=== PATIENT | female | born 1950 | race African-American/Black ===

== ENCOUNTER 2020-09-03 13:30 | Outpatient (RCR) | payer OTHER, SELFPAY ==
--- NOTE | 2020-07-30 15:07 | PTOPEVAL ---
PHYSICAL THERAPY EVALUATION AND PLAN OF CARE 07-30-2020 Thank you for referring Mely Rehman to [facility], for the diagnosis of B LE lymphedema.? She is scheduled to be seen for therapy? 3x/week for 6 weeks. Please review, sign, date and return this plan of care YISEL. I agree with and certify that the following plan of care is medically necessary. Referring Physician Date Attending Provider: Dr. Gray Sosa *PT Outpatient Evaluation Start: 07/30/20 13:50 Document 07/30/20 13:50 DARIA (Rec: 07/30/20 15:07 DARIA [id number]) Outpatient Past Medical History Past Medical History Source of Past Medical History Patient Neurological History Hx Neurological Disorders No Significant History Cardiovascular History Hx Hypertension Yes: meds Respiratory History Hx Other Respiratory Disorders Yes: SOB with exertion Gastrointestinal History Hx Cholecystectomy Yes Hx Gastroesophageal Reflux Disease Yes Musculoskeletal History Hx Other Musculoskeletal Disorders Yes: leg pain from LE lymphedema Endocrine History Hx Endocrine Disorders No Significant History Reproductive History Hx Hysterectomy Yes Other History Hx Cancer Yes: R breast mastectomy, chemo 6 wk Evaluation Information Problem Diagnosis B LE lymphedema Onset May 2020 Prior Level of Function Activity Level (Last 3 Months) Occupation not working Activity of Daily Living Ability Needs Some Help Indoor/Home Mobility Independent Community Mobility Needs Some Help Functional Cognition (Planning, Shopping Needs Some Help , Taking Medications) Cooking No Cleaning No Laundry No Shopping No Driving No Home Setting Home Type House Environmental Barriers Railing, Bilateral,Stairs, 2-4 Living Situation Alone Mobility Assistive Devices (Used Last 3 None,Cane,Walker, Wheeled Months) Comments Additional Prior Level of Function have helper 4 days/wk for 3 & Comments 1/2 hours, Tiny- does all home tasks; bathing, dressing; use wheeled walker or cane in home only; not able to walk in community; 2 entry steps into home with B hand rails; not able to sleep in her bed due to leg pain for past 2 months;
--- NOTE | 2020-09-06 07:35 | PCPTNOTE ---
Patient called & cancelled scheduled appointment this date due to back pain .
--- NOTE | 2020-09-07 14:09 | PCPTNOTE ---
pt called and canceled tomorrow's appointment due to increased in back pain. She reports a history of back pain, sometimes better in few days, other times takes weeks to get better. Discussed with her to remove wraps. She is to call to reschedule reevaluation as soon as her back is better. If it is over 3 weeks, she will need a new dr script to return to therapy. She voiced understanding of above.
--- NOTE | 2020-09-29 08:51 | PCPTNOTE ---
pt called and left message, her son has COVID, so she is on quarantine. And she will return for PT when she is able;
--- NOTE | 2020-10-13 11:58 | PCPTNOTE ---
PHYSICAL THERAPY DISCHARGE 10-13-20 Attending Provider: Dr. Gray Sosa Patient:Mely Rehman Date of :1950 Mrs. Rehman has received 6 PT sessions, from July 30 to September 03, 2020 for the diagnosis of LE lymphedema. She called and canceled appointments due to being ill. She will be discharged from PT at this time. The goals were not assessed. Thank you for referring Mely to [facility]. Please review, sign, date and return this discharge summary YISEL. I have been updated about the patient's current status and I agree with discharge from the above service at this time. Referring Physician Date
== END 2020-10-14 10:07 | disposition home or self-care (01) ==
LOC: ANHPT 13:30
PROVIDERS: PCP Internal Medicine
DX: I89.0 Lymphedema, not elsewhere classified (principal)
CPT/HCPCS: 29581; 97140; 97162

== ENCOUNTER 2021-09-27 18:16 | Emergency (ER) | payer OTHER, SELFPAY ==
--- NOTE | ~2021-09-27 | XR_ITS ---
EXAMINATION: XR chest 1V portable INDICATION: Shortness of breath TECHNIQUE: Portable AP chest at 2157 hours COMPARISON: None available FINDINGS: There are diffuse opacities throughout all lung zones. There is no pleural effusion or pneu mothorax. The cardiomediastinal silhouette is normal. IMPRESSION: 1. Diffuse lung disease in a pattern suggestive of COVID 19 pneumonia. Reviewed, dictated and finalized at location F. LINING BANDER
--- NOTE | ~2021-09-27 | CT_ITS ---
EXAMINATION: CT abdomen pelvis wo con DATE: 09/28/2021 01:41 INDICATION: Nausea. Lower abdominal pain. TECHNIQUE: Computed tomography (CT) of the abdomen and pelvis was performed without intravenous contr ast. Automated exposure control and iterative reconstruction technique were employed. The dose-length product was 1286.63 mGy-cm. COMPARISON: None FINDINGS: Extensive patchy airspace opacities throughout the visualized bilateral mid and lower lung zones with appearance most suspicious for COVID pneumonia. No pleural effusion. Heart size is normal. No perica rdial effusion. Diffuse hepatic steatosis. Cholecystectomy clips at the gallbladder fossa. Spleen, pa ncreas, bilateral adrenal glands and kidneys are normal. Bladder is normal. The uterus is not identif ied and has likely been surgically resected. Bowels including the appendix are normal. No free intr aperitoneal gas or fluid. No pathologically enlarged abdominal or pelvic lymphadenopathy. Moderate th oracic and severe lumbar spondylosis. There are bridging osteophytes at multiple levels in the spine, consistent with diffuse idiopathic skeletal hyperostosis (DISH). IMPRESSION: 1. Diffuse patchy bilateral lung disease most consistent with COVID pneumonia. 2. No acute intra-abdominal/pelvic process. Reviewed, dictated and finalized at location A. T SORTER
[2021-09-27 18:37] VITALS: BP 173/67; PULSE 80; RESP 17; TEMP 36.7; O2SAT 97
[2021-09-27 18:58] LABS: Basophils Percent Auto 0.3 % (0.2-1.2); Eosinophils Percent Auto 1.1 % (0-4.4); Hemoglobin 13.9 g/dL (12.0-15.0); Immature Granulocyte Absolute 0.03 K/mm3 (0.00-0.031); Immature Granulocyte Percent A 0.8 % (0-0.5); Lymphocytes Absolute Auto 1.66 K/mm3 (0.9-3.2); Lymphocytes Percent Auto 46.5 % (18.3-44.2); Mean Corpuscular HGB Conc 33.9 g/dl (32-36); Mean Corpuscular Volume 85.4 fl (80-100); Mean Platelet Volume 10.1 fl (7.4-10.4); Monocytes Absolute Auto 0.5 K/mm3 (0.1-0.6); Monocytes Percent Auto 13.7 % (2.6-8.5); Neutrophils Absolute Auto 1.3 K/mm3 (1.3-6.7); Neutrophils Percent Auto 37.6 % (45.5-73.1); Platelet Count Result 185 k/mm3 (150-375); Red Cell Distribution Width 14.3 % (11.5-14.5); White Blood Count 3.6 K/mm3 (4.5-10.0)
[2021-09-27 19:09] LABS: Alanine Aminotransferase 49 U/L (4-35); Albumin Level 3.3 g/dL (3.5-5.1); Alkaline Phosphatase 79 U/L (38-126); Anion Gap 7 mmol/L (8-16); Aspartate Amino Transferase 64 U/L (14-36); Bilirubin,Total 0.6 mg/dL (0.2-1.3); Blood Urea Nitrogen 17 mg/dL (7-17); Calcium 8.8 mg/dL (8.4-10.2); Carbon Dioxide 28 mmol/L (22-30); Chloride 100 mmol/L (98-107); Estimated CRCL calculation 39 ml/min; Estimated Glomerular Filt Rate 38; Glucose 122 mg/dL (65-110); Lipase 317 U/L (23-300); Potassium 4.7 mmol/L (3.4-5.0); Sodium 135 mmol/L (137-145)
--- NOTE | 2021-09-27 19:28 | PC.NURSE ---
Pt assisted to the bathroom in waiting room for CCUS. Able to stand and ambulate to the bathroom on her own. UA collected and speciman sent. Pt made aware of pending wait and busy department.
[2021-09-27 19:54] LABS: Add Urine Microscopic? YES; Appearance Urine Clear (Clear); Bacteria Urine Trace /hpf; Bilirubin Urine Negative (Negative); Blood Urine Negative (Negative); Color Urine Yellow (Yellow); Glucose Urine UA Negative (Negative); Ketones Urine Negative (Negative); Leukocyte Esterase Ur Negative LEU/UL (Negative); Mucus Urine Rare /lpf; Nitrate Urine Negative (Negative); Protein Urine 2+ mg/dL (Negative); RBC Urine 0-2 /hpf (0-2); Specific Grav Ur 1.006 (1.001-1.035); Squamous Epithelial Cell Urine Moderate /hpf (Few); Urobilinogen Urine Negative mg/dL (<2.0); WBC Urine 0-3 /hpf
[2021-09-27 21:48] VITALS: BP 163/58; PULSE 97; RESP 18; O2SAT 99
--- NOTE | 2021-09-27 22:19 | ECG_ITS ---
Measurements Intervals [place] Rate: 80 P: 53 MA: 170 QRS: -27 QRSD: 88 T: 68 QT: 320 QTc: 370 Interpretive Statements SINUS RHYTHM LEFT AXIS DEVIATION POSSIBLE LEFT ATRIAL ENLARGEMENT EARLY PRECORDIAL R/S TRANSITION LOW QRS VOLTAGE IN PRECORDIAL LEADS POSSIBLE LEFT VENTRICULAR HYPERTROPHY BASELINE ARTIFACT- I, II, III, AVR, AVL, AVF BORDERLINE ECG Electronically Signed On 09-28-2021 6:34:09 CHEF KITCHEN MANAGER by Jefry Roth D.O.
[2021-09-27] MEDS: ONDANSETRON INJ 4 MG/2 ML VIAL 8 MG IV PUSH (22:50)
[2021-09-27 23:33] LABS: Alveolar/Arterial O2 Gradient 50.8 mmHg; Base Excess ABG 0.7 mEq/l (+/-2.0); Carboxyhemoglobin 0.4 % THb (0-2.0); Device ROOM AIR; Fractional Inspired Oxygen 21 %; HCO3 ABG 23.7 mEq/l (22.0-26.0); Methemoglobin ABG 0.2 %THb (0-1.5); Modified Allen's Test Pass; Oxygen Content ABG 18.1 %vol (16.0-22.0); Oxygen Saturation ABG 92.2 % (95.0-100.0); Oxyhemoglobin 90.3 % THb (90.0-100.0); PCO2 ABG 33.6 mmHg (35.0-45.0); PO2 ABG 58.7 mmHg (80.0-100.0); Reduced Hemoglobin 9.1 %THb (0-5.0); Site Drawn LEFT RADIAL; Total Hemoglobin 14.3 g/dL (12.0-18.0); pH ABG 7.467 (7.350-7.450)
[2021-09-27 23:44] VITALS: BP 162/72; PULSE 88; RESP 24; O2SAT 96
--- NOTE | 2021-09-28 00:07 | ED.GENADULT ---
HPI - General Adult General Chief complaint: Nausea/Vomiting/Diarrhea Stated complaint: COVID 09/11 STILL SOB AND ?UTI Time Seen by Provider: 09/27/21 21:34 Source: patient Mode of arrival: ambulatory Limitations: no limitations History of Present Illness HPI narrative: This is a 70 year old female who presents for evaluation of nausea , cough and shortness of breath. Patient was diagnosed with COVID 09/11.. She states she has completed quarantine but she is still feeling short of breath. She reports last night her sob worsened and she had to sit up in bed. She also states she was diagnosed with a UTI last week. She was started on macrobid but she has been having nausea due to macrobid. She denies any vomiting or diarrhea. She reports lower abdominal pressure. She also states she had fever last night. Related Data Allergies Allergy/AdvReac Type Severity Reaction Status Date / Time acetaminophen [From Vicodin] Allergy Unknown Verified 09/27/21 22:10 citalopram [From Celexa] Allergy Unknown Verified 09/27/21 22:10 hydrocodone [From Vicodin] Allergy Unknown Verified 09/27/21 22:10 iohexol Allergy Unknown Verified 09/27/21 22:11 [From contrast - CT, X-RAY] nitrofurantoin Allergy Unknown Verified 09/27/21 22:12 [From Macrobid] pantoprazole [From Protonix] Allergy Unknown Verified 09/27/21 22:12 Review of Systems Review of Systems: All systems reviewed & are unremarkable except as noted in HPI and below PMFSH Past Medical History Medical History (Updated 09/28/21 @ 02:13 by Madonna Segal MD) Hypertension Lymphedema Morbid obesity Surgical History Surgical History (Updated 09/28/21 @ 00:09 by Madonna Segal MD) H/O mastectomy History of cholecystectomy Social History Social History (Updated 09/28/21 @ 00:09 by Madonna Segal MD) Smoking status: Never smoker Exam Const: General: no acute distress and alert Nutritional Appearance: obese morbidly obese Orientation/consciousness: patient oriented x3 HENMT: Head: normocephalic and atraumatic Ears: TM's normal bilaterally Face and sinus: normal facial exam, sinuses nontender and face symmetric Mouth: Yes Normal oral and palatal mucosa present, Yes lip normal, Yes tongue normal, Yes oropharynx normal and Yes moist mucous membranes Eyes: EOM: EOMs intact bilaterally Chest: Chest palpation & inspection: normal inspection of the chest Resp: Effort & Inspection: normal respiratory effort and no retractions Auscultation: clear to auscultation bilaterally Cardio: Rate: regular rate Rhythm: regular rhythm Heart sounds: no murmurs GI: GI Palp: Yes Soft to palpation, No Tenderness to palpation present (GI) and No Guarding due to palpation present (GI) Auscultation: normal bowel sounds : General: Yes no CVA tenderness Back/Spine/Pelvis: Back: no CVA tenderness Neuro: General: patient oriented x3 and moves all extremities Extrem: General: edema Psych: Mental Status: mental status grossly normal Affect: normal affect Course Reevaluation(s) Reevaluation #1: PAtient has covid pneumonia. She refuses to get CTA as she does not want IV contrast. She reports IV contrast causes nausea and vomiting . She denies hives, swelling or shortness of breath during IV contrast use. I recommended to patient that she get CT scan but she refuses and she signed refusal saying she understood risk of refusal. Nurse was at bedside. It appears patient is anticoagulated. Nurse reports patient was seen at [facility] yesterday for same complaint and discharged. Date: 09/28/21 Time: 02:10 Reevaluation #2: I discussed with patient that she has covid pneumonia. She states last week she was placed on prednisone and z pack so I suspect she already had pneumonia. She was able to ambulate and her oxygenation due to go below 92 % on room air. Date: 09/28/21 Time: 02:39 Vital Signs Vital signs: Vital Signs Temperature 98.0 F 09/27/21 18:37
[2021-09-28 00:08] LABS: Troponin I < 0.012 ng/mL (0.000-0.034)
[2021-09-28] MEDS: METOCLOPRAMIDE HCL INJ 10 MG/2 ML VIAL IV PUSH (00:28)
[2021-09-28 00:30] LABS: INR 4.1; Prothrombin Time 38.3 Seconds (11.1-14.7)
[2021-09-28 00:31] LABS: Partial Thromboplastin Time 87.1 SECONDS (22.3-36.8)
[2021-09-28] MEDS: HYOSCYAMINE SULFATE 0.125 MG TABLET PO (00:32)
[2021-09-28 00:33] LABS: D Dimer 0.53 ug/mL (<0.48)
[2021-09-28 00:34] VITALS: BP 162/86; PULSE 80; RESP 24; O2SAT 95
--- NOTE | 2021-09-28 01:08 | PC.NURSE ---
Pt signs refusal form for CTA with Dr. Segal and this RN witnessing at this time.
[2021-09-28 01:50] VITALS: BP 135/86; PULSE 78; RESP 26; O2SAT 96
[2021-09-28 03:04] VITALS: BP 153/73; PULSE 81; RESP 24; O2SAT 94
== END 2021-09-28 03:05 | disposition home or self-care (01) ==
PROVIDERS: Emergency Medicine; Emergency Provider General Practice; PCP Internal Medicine
DX: U07.1 COVID-19 (principal); J12.82 Pneumonia due to coronavirus disease 2019; R11.0 Nausea; I10 Essential (primary) hypertension; I89.0 Lymphedema, not elsewhere classified; E66.01 Morbid (severe) obesity due to excess calories; Z68.43 Body mass index [BMI] 50.0-59.9, adult; Z90.10 Acquired absence of unspecified breast and nipple; R94.31 Abnormal electrocardiogram [ECG] [EKG]
CPT/HCPCS: 36415; 36600; 71045; 74176; 80053; 81001; 82375; 82805; 83050; 83690; 84484; 85025; 85380; 85610; 85730; 93005; 96365; 96375; 99284; A9270; J0131; J2405; J2765

== ENCOUNTER 2022-08-25 12:44 | Outpatient (CLI) | payer OTHER, SELFPAY | END 2022-08-25 12:45 | disposition home or self-care (01) | LOC: ANHAUDIO 12:46 | PROVIDERS: PCP Internal Medicine; Visit Provider Otolaryngology | DX: H93.11 Tinnitus, right ear (principal); H90.3 Sensorineural hearing loss, bilateral | CPT/HCPCS: 92557; 92567 ==

== ENCOUNTER 2022-09-03 11:48 | Emergency (ER) | payer OTHER, SELFPAY ==
--- NOTE | ~2022-09-03 | XR_ITS ---
EXAMINATION: XR chest 1V portable INDICATION: Bilateral lower limb swelling TECHNIQUE: Portable AP chest at 1242 hours COMPARISON: 09/27/2021 FINDINGS: There are mild diffuse interstitial and airspace opacities throughout all lung zones with a mid and lower lung zone predominance. No pleural effusion or pneumothorax. The cardiomediastinal vanessa houette is normal. IMPRESSION: 1. Mild diffuse lung disease, consistent with pneumonia and/or atelectasis Lily/or pulmonary edema. Reviewed, dictated and finalized at location A. F ENGINEER DRILLING AND RECOVERY IMPRESSION: 1. Mild diffuse lung disease, consistent with pneumonia and/or atelectasis Lily/ or pulmonary edema.
[2022-09-03 11:52] VITALS: BP 162/72; PULSE 88; RESP 18; TEMP 36.9; O2SAT 99
--- NOTE | 2022-09-03 12:25 | ED.EXTPRO ---
HPI - Extremity Problem General Chief complaint: Extremity Problem,Nontraumatic Stated complaint: legs are swollen Time Seen by Provider: 09/03/22 12:25 Source: patient and family History of Present Illness HPI Narrative: 71 years old -Sammarinese female presents with Hall of the lower legs started 1 week ago after her multiple chair got broken. History of lymphedema for over 3 years, patient currently on Lasix 40 mg once a day for lymphedema, also on Coumadin for pulmonary embolism and prophylaxis for years. Patient denies any chest pain, shortness of breath, back pain, palpitation or other symptoms. Patient reports having a motor chair which she cannot lift her leg up to the level of her heart or above it. That she had got broken 1 week ago, patient legs that been hanging down since while sitting on a chair. The edema got worse. She denies any fever, chills, nausea, vomiting. Related Data Home Medications Medication Instructions Recorded Confirmed betamethasone dipropionate 0.05 % 1 applic topical DAILY PRN 08/17/22 08/17/22 topical cream chlorhexidine gluconate 0.12 % 15 ml buccal DAILY 08/17/22 08/17/22 mouthwash cholecalciferol (vitamin D3) 1,250 1,250 mcg PO WEEKLY 08/17/22 08/17/22 mcg (50,000 unit) capsule clotrimazole 1 % topical cream 1 applic topical Q12H 08/17/22 08/17/22 furosemide 40 mg tablet 40 mg PO QAM 08/17/22 08/17/22 lorazepam 1 mg tablet 1 mg PO DAILY PRN 08/17/22 08/17/22 losartan 25 mg tablet 25 mg PO DAILY 08/17/22 08/17/22 meclizine 25 mg tablet 25 mg PO BID PRN 08/17/22 08/17/22 pantoprazole 40 mg tablet,delayed 40 mg PO QAM 08/17/22 08/17/22 release (Protonix) potassium chloride 20 mEq 20 meq PO DAILY 08/17/22 08/17/22 tablet,extended release tramadol 50 mg tablet 50 mg PO Q6H PRN 08/17/22 08/17/22 urea 40 % lotion 1 applic topical BID 08/17/22 08/17/22 Allergies Allergy/AdvReac Type Severity Reaction Status Date / Time acetaminophen [From Vicodin] Allergy Unknown Verified 08/17/22 13:27 citalopram [From Celexa] Allergy Unknown Verified 08/17/22 13:27 erythromycin base Allergy Palpitation Verified 09/03/22 12:27 s hydrocodone [From Vicodin] Allergy Unknown Verified 08/17/22 13:27 hydroxyzine [From Vistaril] Allergy Palpitation Verified 09/03/22 12:27 s iohexol Allergy Unknown Verified 08/17/22 13:27 [From contrast - CT, X-RAY] meperidine [From Demerol] Allergy Palpitation Verified 09/03/22 12:27 s nitrofurantoin Allergy Unknown Verified 08/17/22 13:27 [From Macrobid] pantoprazole [From Protonix] Allergy Unknown Verified 08/17/22 13:27 tetracycline Allergy Nausea Verified 09/03/22 12:27 Review of Systems Review of Systems: All systems reviewed & are unremarkable except as noted in HPI and below PMFSH Past Medical History Medical History Hypertension Lymphedema Morbid obesity Surgical History Surgical History H/O mastectomy History of cholecystectomy Family History Family History Father Lung cancer Sibling Lung cancer Hypertension Heart disease Grandparent Hypertension Heart disease Social History Social History Smoking status: Never smoker Alcohol intake: never Substance use: never Lack of Transportation: No Lack of Food: Never True Current Housing: I Have Housing Concerned About Future Housing: No Difficulty Paying Gas/Electric Bills: No Difficulty Paying for Meds: No Currently Unemployed: No Education: High School Diploma/GED Difficulty w/ Childcare or Family Care: No Exam Narrative: General appearance: Well-developed, well-nourished Skin: Normal color, bilateral lower legs edema up to the knees bilaterally, chronic stasis dermatitis with thick rough skin anteriorly, no discharge,
--- NOTE | 2022-09-03 12:27 | ECG_ITS ---
Measurements Intervals [place] Rate: 73 P: 48 WA: 232 QRS: -28 QRSD: 89 T: 40 QT: 343 QTc: 379 Interpretive Statements SINUS RHYTHM WITH FIRST DEGREE AV BLOCK LOW QRS VOLTAGE IN PRECORDIAL LEADS [QRS DEFLECTION < 1.0 mV IN CHEST LEADS] MODERATE VOLTAGE CRITERIA FOR LVH, CONSIDER NORMAL VARIANT [MEETS CRITERIA IN ONE OF: R(aVL), S(V1), R(V5), R(V5/V6)+S(V1)] COMPARED TO ECG 09/27/2021 23:13:01 FIRST DEGREE AV BLOCK NOW PRESENT Electronically Signed On 09-03-2022 14:52:25 BINDER SELECTOR by Eleonora Chopra M.D.
[2022-09-03 13:06] LABS: Basophils Percent Auto 0.6 % (0.2-1.2); Eosinophils Absolute Auto 0.5 K/mm3 (0-0.3); Eosinophils Percent Auto 7.7 % (0-4.4); Hematocrit 41.9 % (37.0-47.0); Hemoglobin 13.6 g/dL (12.0-15.0); Immature Granulocyte Absolute 0.03 K/mm3 (0.00-0.031); Immature Granulocyte Percent A 0.5 % (0-0.5); Lymphocytes Absolute Auto 1.82 K/mm3 (0.9-3.2); Lymphocytes Percent Auto 28.7 % (18.3-44.2); Mean Corpuscular HGB Conc 32.5 g/dl (32-36); Mean Corpuscular Hemoglobin 28.2 pg (26-34); Mean Corpuscular Volume 86.7 fl (80-100); Monocytes Absolute Auto 0.7 K/mm3 (0.1-0.6); Neutrophils Absolute Auto 3.3 K/mm3 (1.3-6.7); Neutrophils Percent Auto 51.5 % (45.5-73.1); Platelet Count Result 186 k/mm3 (150-375); Red Blood Count 4.83 M/mm3 (4.2-5.4); Red Cell Distribution Width 16.1 % (11.5-14.5); White Blood Count 6.4 K/mm3 (4.5-10.0)
[2022-09-03 13:16] LABS: Alanine Aminotransferase 23 U/L (6-35); Albumin Level 4.2 g/dL (3.5-5.1); Alkaline Phosphatase 91 U/L (38-126); Anion Gap 5 mmol/L (8-16); Aspartate Amino Transferase 28 U/L (14-36); Bilirubin,Total 0.6 mg/dL (0.2-1.3); Blood Urea Nitrogen 18 mg/dL (7-17); Calcium 9.6 mg/dL (8.4-10.2); Carbon Dioxide 27 mmol/L (22-30); Chloride 109 mmol/L (98-107); Estimated CRCL calculation 40 ml/min; Estimated Glomerular Filt Rate 41; Glucose 107 mg/dL (65-110); INR 1.9; Prothrombin Time 21.3 Seconds (11.1-14.7); Sodium 141 mmol/L (137-145)
[2022-09-03 13:17] LABS: Partial Thromboplastin Time 39.3 SECONDS (22.3-36.8)
[2022-09-03 13:24] LABS: NT Pro B Type Natriuretic Pept 21 pg/mL (5-100)
[2022-09-03 13:57] LABS: Add Urine Microscopic? NO; Appearance Urine Clear (Clear); Bilirubin Urine Negative (Negative); Blood Urine Negative (Negative); Color Urine Light Yellow (Yellow); Glucose Urine UA Negative (Negative); Ketones Urine Negative (Negative); Leukocyte Esterase Ur Negative LEU/UL (Negative); Nitrate Urine Negative (Negative); Protein Urine Negative (Negative); Specific Grav Ur 1.015 (1.001-1.035); Urobilinogen Urine 0.2 mg/dL (<2.0)
[2022-09-03 14:25] VITALS: BP 138/72; PULSE 76; RESP 18; O2SAT 99
== END 2022-09-03 14:25 | disposition home or self-care (01) ==
PROVIDERS: Emergency Provider Emergency Medicine; PCP Internal Medicine
DX: R60.0 Localized edema (principal); I89.0 Lymphedema, not elsewhere classified; I10 Essential (primary) hypertension; Z79.01 Long term (current) use of anticoagulants; Z86.711 Personal history of pulmonary embolism
CPT/HCPCS: 36415; 71045; 80053; 81003; 83880; 85025; 85610; 85730; 93005; 99283

== ENCOUNTER 2024-03-03 13:35 | Emergency (ER) | payer OTHER, SELFPAY ==
--- NOTE | ~2024-03-03 | CT_ITS ---
CT abdomen pelvis wo con Ordering provider: Nino Mccann MD History: 73 years Female with . left flank pain . Comparison: September 28, 2021 Technique: CT abdomen and pelvis without IV and without oral contrast. Radiation reduction technique utilized. DLP L is 1834.77 mGy. Findings: VISUALIZED LOWER CHEST: Dependent atelectatic changes. UPPER ABDOMINAL ORGANS: Liver: Normal. Gallbladder: Status post cholecystectomy. Spleen: Normal. Stomach/duodenum: Sliding hiatus hernia. Pancreas: Normal. Adrenals: Normal. Kidneys: Minimal fullness of the right renal pelvis. No stones or dilated ureters seen. PELVIC ORGANS: The bladder is normal. BOWEL AND MESENTERY: Colon: No evidence of diverticulitis. Normal appendix. Small Bowel: Normal. No obstruction. Peritoneum/mesentery: No free air or free fluid. No mesenteric lymphadenopathy. RETROPERITONEUM: Mild atheromatous disease of the abdominal aorta. No retroperitoneal lymphadenopat hy. MUSCULOSKELETAL: Superficial soft tissues: The superficial soft tissues are normal. Bones: Age appropriate degenerative changes of the spine. IMPRESSION: 1. No evidence of obstruction, diverticulitis or appendicitis. 2. Slightly dilated right renal pelvis with no definite stones. 3. Sliding hiatus hernia. Reviewed, dictated and finalized at location A.
[2024-03-03 13:37] VITALS: BP 174/81; PULSE 79; RESP 20; TEMP 36.7; O2SAT 99
[2024-03-03 14:21] VITALS: BP 178/89; PULSE 69; RESP 20; O2SAT 99
[2024-03-03 14:23] LABS: Appearance Urine Clear (Clear); Bilirubin Urine Negative (Negative); Blood Urine Negative (Negative); Color Urine Yellow (Yellow); Glucose Urine UA Negative (Negative); Ketones Urine Negative (Negative); Leukocyte Esterase Ur Negative LEU/UL (Negative); Nitrate Urine Negative (Negative); Protein Urine Negative (Negative); Specific Grav Ur 1.012 (1.001-1.035); Urobilinogen Urine 0.2 mg/dL (<2.0); pH Urine 5.5 (5.0-9.0)
[2024-03-03 14:37] LABS: Add Urine Microscopic? NO
--- NOTE | 2024-03-03 14:40 | ED.BACK ---
HPI - Back Pain/Injury General Chief Complaint: Back Pain/Injury Stated Complaint: back pain Time Seen by Provider: 03/03/24 14:15 History of Present Illness HPI Narrative: 73-year-old female present to the emergency department for evaluation of left flank pain. Patient presents pain has been ongoing for the last few days. Patient describes an aching in her left flank. Patient states she also does have some suprapubic ache. Patient denies any specific pain with urination. Patient has no prior history of a DVT. Related Data Home Medications Medication Instructions Recorded Confirmed betamethasone dipropionate 0.05 % 1 applic topical DAILY PRN 08/17/22 08/17/22 topical cream chlorhexidine gluconate 0.12 % 15 ml buccal DAILY 08/17/22 08/17/22 mouthwash cholecalciferol (vitamin D3) 1,250 1,250 mcg PO WEEKLY 08/17/22 08/17/22 mcg (50,000 unit) capsule clotrimazole 1 % topical cream 1 applic topical Q12H 08/17/22 08/17/22 furosemide 40 mg tablet 40 mg PO QAM 08/17/22 08/17/22 lorazepam 1 mg tablet 1 mg PO DAILY PRN 08/17/22 08/17/22 losartan 25 mg tablet 25 mg PO DAILY 08/17/22 08/17/22 meclizine 25 mg tablet 25 mg PO BID PRN 08/17/22 08/17/22 pantoprazole 40 mg tablet,delayed 40 mg PO QAM 08/17/22 08/17/22 release (Protonix) potassium chloride 20 mEq 20 meq PO DAILY 08/17/22 08/17/22 tablet,extended release tramadol 50 mg tablet 50 mg PO Q6H PRN 08/17/22 08/17/22 urea 40 % lotion 1 applic topical BID 08/17/22 08/17/22 Allergies Allergy/AdvReac Type Severity Reaction Status Date / Time acetaminophen [From Vicodin] Allergy Unknown Verified 08/17/22 13:27 citalopram [From Celexa] Allergy Unknown Verified 08/17/22 13:27 erythromycin base Allergy Palpitation Verified 09/03/22 12:27 s hydrocodone [From Vicodin] Allergy Unknown Verified 08/17/22 13:27 hydroxyzine [From Vistaril] Allergy Palpitation Verified 09/03/22 12:27 s iohexol Allergy Unknown Verified 08/17/22 13:27 [From contrast - CT, X-RAY] meperidine [From Demerol] Allergy Palpitation Verified 09/03/22 12:27 s nitrofurantoin Allergy Unknown Verified 08/17/22 13:27 [From Macrobid] pantoprazole [From Protonix] Allergy Unknown Verified 08/17/22 13:27 tetracycline Allergy Nausea Verified 09/03/22 12:27 Review of Systems Review of Systems: All systems reviewed & are unremarkable except as noted in HPI and below PMFSH Past Medical History Medical History Hypertension Lymphedema Morbid obesity Surgical History Surgical History H/O mastectomy History of cholecystectomy Family History Family History Father Lung cancer Sibling Lung cancer Hypertension Heart disease Grandparent Hypertension Heart disease Social History Social History Smoking status: Never smoker Alcohol intake: never Substance use: never Lack of Transportation: No Lack of Food: Never True Current Housing: I Have Housing Concerned About Future Housing: No Difficulty Paying Gas/Electric Bills: No Difficulty Paying for Meds: No Currently Unemployed: No Education: High School Diploma/GED Difficulty w/ Childcare or Family Care: No Exam Narrative: APPEARANCE: Well appearing, no pain, no distress, well-nourished. HEAD: normocephalic, atraumatic. EYES: PERRLA/EOMI, conjunctivae clear. NOSE: Normal no drainage EARS:TMS clear with good light reflex. THROAT: Pharynx clear, no exudate. NECK: Supple. No adenopathy, no masses. RESPIRATORY: Airway patent, respirations nonlabored. Clear to auscultation bilaterally, no rales, rhonchi, wheezing. CARDIOVASCULAR: Regular rate and rhythm without murmurs rubs or gallops. ABDOMINAL: Left flank tenderness to palpation MUSCULOSKELETAL: Moves all extremities. Strength/ROM intact
[2024-03-03 14:47] VITALS: BP 161/84; PULSE 56; RESP 20; O2SAT 98
[2024-03-03 15:07] LABS: Basophils Percent Auto 0.5 % (0.2-1.2); Eosinophils Absolute Auto 0.3 K/mm3 (0-0.3); Eosinophils Percent Auto 5.4 % (0-4.4); Hematocrit 40.3 % (37.0-47.0); Hemoglobin 13.1 g/dL (12.0-15.0); Immature Granulocyte Absolute 0.02 K/mm3 (0.00-0.031); Immature Granulocyte Percent A 0.3 % (0-0.5); Lymphocytes Absolute Auto 2.25 K/mm3 (0.9-3.2); Lymphocytes Percent Auto 38.3 % (18.3-44.2); Mean Corpuscular HGB Conc 32.5 g/dl (32-36); Mean Corpuscular Hemoglobin 27.3 pg (26-34); Mean Corpuscular Volume 84.1 fl (80-100); Mean Platelet Volume 10.9 fl (7.4-10.4); Monocytes Absolute Auto 0.7 K/mm3 (0.1-0.6); Monocytes Percent Auto 11.9 % (2.6-8.5); Neutrophils Absolute Auto 2.6 K/mm3 (1.3-6.7); Neutrophils Percent Auto 43.6 % (45.5-73.1); Platelet Count Result 210 k/mm3 (150-375); Red Blood Count 4.79 M/mm3 (4.2-5.4); Red Cell Distribution Width 16.1 % (11.5-14.5); White Blood Count 5.9 K/mm3 (4.5-10.0)
[2024-03-03 15:19] LABS: Alanine Aminotransferase 20 U/L (6-35); Albumin Level 3.9 g/dL (3.5-5.1); Alkaline Phosphatase 93 U/L (38-126); Anion Gap 5 mmol/L (4-12); Aspartate Amino Transferase 30 U/L (14-36); Bilirubin,Total 0.6 mg/dL (0.2-1.3); Blood Urea Nitrogen 11 mg/dL (7-17); Calcium 9.8 mg/dL (8.4-10.2); Carbon Dioxide 24 mmol/L (22-30); Chloride 112 mmol/L (98-107); Estimated CRCL calculation 48 ml/min; Estimated Glomerular Filt Rate 53; Glucose 103 mg/dL (65-110); Sodium 141 mmol/L (137-145)
[2024-03-03 15:44] VITALS: BP 154/71; PULSE 98; RESP 18; O2SAT 99
[2024-03-03 15:47] VITALS: BP 161/67; PULSE 97; RESP 20; O2SAT 99
== END 2024-03-03 16:10 | disposition home or self-care (01) ==
PROVIDERS: Emergency Provider Emergency Medicine; PCP Internal Medicine
DX: M54.50 Low back pain, unspecified (principal); I12.9 Hypertensive chronic kidney disease with stage 1 through stage 4 chronic kidney disease, or unspecified chronic kidney disease; N18.9 Chronic kidney disease, unspecified
CPT/HCPCS: 36415; 74176; 80053; 81003; 85025; 99284

== ENCOUNTER 2024-10-27 11:02 | Emergency (ER) | payer OTHER, SELFPAY ==
--- NOTE | ~2024-10-27 | CT_ITS ---
EXAMINATION: CT abdomen pelvis wo con DATE: 10/27/2024 13:42 INDICATION: Left flank pain. Low back pain. TECHNIQUE: Computed tomography (CT) of the abdomen and pelvis was performed without intravenous contr ast. Automated exposure control and iterative reconstruction technique were employed. The dose-length product was 1541.34 mGy-cm. COMPARISON: CT abdomen and pelvis 03/03/2024 FINDINGS: The visualized portions of the lung bases demonstrate mild atelectasis. No pleural effusion . The heart size is normal. No pericardial effusion. There is a small sliding hiatal hernia. The live r and spleen are normal. There are changes of cholecystectomy. The pancreas, adrenal glands, and kidn eys are normal. There is no urolithiasis. There are no dilated loops of bowel. The appendix is normal . There are no pathologically enlarged lymph nodes. There is no free intraperitoneal fluid. There is severe lumbar spondylosis. There is mild chronic anterior wedging of multiple vertebral bodies. IMPRESSION: 1. No urolithiasis. 2. Small sliding hiatal hernia. Reviewed, dictated and finalized at location A. CE CLERK
[2024-10-27 11:44] VITALS: BP 179/89; PULSE 69; TEMP 36.5; O2SAT 100
--- OUTSIDE RECORDS SUMMARY | 2024-10-27 11:53 | XMS_ITS | Encounter Summary ---
Author Organization [facility] Address [address] [place] [address] Phone Care Team Providers Care Carton Waxing Machine Operator Name Role Phone Franco Magdaleno MD Primary Care Provider Genie Kimbrough MD Unavailable [phone] Encounter Details Date Type Department Care Team (Late st Contact Info) Description 03/05/2024 Telephone [facility] [address] [place] [address] Genie Kimbrough MD [address] [address] Social History Tobacco Use Types Packs/Day Years Used Date Smoking Tobacco: Never Smokeless Tobacco: Never Alcohol Use Standard Drinks/Week Comments Never 0 (1 standard drink = 0.6 oz pur e alcohol) Sexually Active Control Partners Comments Not Currently Comments No Sex and Gender Information Value Date Recorded Sex Assigned at Not on file Legal Sex 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 ASSESSMENT: Request for provider review due to the following reason(s): Patient refusal or unable to contact patient. Closing referral's can be reopened when patient respond's Lisa Ruano [facility] - Referrals opt 7 documented in this encounter Plan of Treatment Not on file documented as of this encounter Visit Diagnoses Not on filedocumented in this encounter Care Teams Carton Waxing Machine Operator Relationship Specialty Start Date End Date Franco Magdaleno MD PCP - General Internal Medicine 05/17/23 Genie Kimbrough MD [address] [address] Consulting Physician Urology 05/25/23 documented as of this encounter
--- OUTSIDE RECORDS SUMMARY | 2024-10-27 11:53 | XMS_ITS | Encounter Summary ---
Author Organization [facility] Address [address] [place] [address] Care Team Providers Care Quality Assurance Monitor Chassis Name Role Phone Franco Magdaleno MD Primary Care Provider Reason for Visit * Reason Onset Date Comments Medication Issue 03/01/2022 Encounter Details Date Type Department Care Team (Late st Contact Info) Description 03/01/2022 Telephone [facility] [address] [place] [address], [place] [address] Gray Sosa MD [address] [place] [address] [address] [facility] [place], [place] [id number] Medication Issue Social History Tobacco Use Types Packs/Day Years Used Date Smoking Tobacco: Never Smokeless Tobacco: Never Sex and Gender Information Value Date Recorded Sex Assigned at Not on file Gender Identity Not on file Sexual Orientation Not on file documented as of this encounter Miscellaneous Notes * Telephone Encounter - Ajay Morrison - 03/01/2022 11:48 AM CDT Pt called this morning requesting a refill for urea (CARMOL;VANAMIDE) 40 % cream. Pt is scheduled for 04/18/22. Please advise. documented in this encounter Plan of Treatment Not on file documented as of this encounter Visit Diagnoses Not on filedocumented in this encounter Care Teams Quality Assurance Monitor Chassis Relationship Specialty Start Date End Date Franco Magdaleno MD [address] [place] [address] PCP - General 11/21/22 documented as of this encounter
--- OUTSIDE RECORDS SUMMARY | 2024-10-27 11:53 | XMS_ITS | CONTINUITY OF CARE DOCUMENT ---
Author Name lia fitzgerald Address Unknown Organization [facility] Address [address] [place] [address] Phone [phone] Care Team Providers Care Sprinkler Helper Name Role Phone Rafael NOWAK, Rosas Unavailable DALILA DUPREE MD Unavailable [phone] DALILA DUPREE MD Unavailable [phone] PROBLEMS Condition Status Date Provider Notes senior care anticoagulant therapy active Danni Marin RN Exposure to SARS-associated coronavirus active Rosas Hall MD Sinus bradycardia active Rosas Hall MD HTN-11/24 NUC NEG 10/23 NUC 07/21 NUC completed - Rosas Hall MD CHEST PAIN-09/21 CATH NL EF 60 active ? 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 EF 60 completed - Rosas Hall MD PALPITATIONS completed - John Hernandes CAD-02/25 CAROTID NEG completed - Rosas Hall MD HTN-02/25 ECHO BUBBLE STUDY- DIASTOLIC DYS EF 60 completed - Rosas Hall MD DIZZINESS completed - John Hernandse HTN essential--echo ef nl, 01/2023 active Homar Sanon Lymphedema active Damien Moody Hx of DVT active John Hernandes Shortness of breath active John Durán rg Leg pain, left active Damien Moody Lightheadedness active Damien Moody Pleural effusion, trace active Homar Beckford i ENCOUNTERS Date Type Provider Location Encounter Diag nosis - In-person encounter Office Visit Rosas Hall MD [facility] - In-person encounter Office Visit Rosas Hall MD [facility] - In-person encounter Office Visit Rosas Hall MD [facility] - In-person encounter Office Visit Rosas aHll MD [facility] - In-person encounter Office Visit Rosas Hall MD [facility] - In-person encounter Office Visit Rosas Hall MD [facility] - In-person encounter Office Visit Rosas Hall MD [facility] [place] [facility] HTN essential--echo ef nl, 01/2023 - In-person encounter Office Visit Rosas Hall MD [facility] Pleural effusion, trace - In-person encounter Office Visit Rosas Hall MD [facility] - In-person encounter Office Visit Rosas Hall MD [facility] - In-person encounter Office Visit Rosas Hall MD [facility] - In-person encounter Office Visit Rosas Hall MD [facility] HTN essential--echo ef nl, 01/2023 - In-person encounter Office Visit Rosas Hall MD [facility] - In-person encounter Office Visit [facility]as uRiz [facility] Leg pain, leftLightheadedness - In-person encounter Office Visit Rosas Hall MD [facility] Office HTN essential--echo ef nl, 01/2023 - In-person encounter Office Visit Rosas Hall MD [facility] PALPITATIONSDIZZINESS - In-person encounter Office Visit Rosas Hall MD [facility] Hx of DVTShortness of breath - In-person encounter Office Visit Rosas Hall MD [facility] Lymphedema - In-person encounter Office Visit Rosas Hall MD [facility] - In-person encounter Office Visit Rosas Hall MD [facility] - In-person encounter Office Visit Rosas Hall MD [facility] - In-person encounter Office Visit Rosas Hall MD [facility] - In-person encounter Office Visit Rosas Hall MD [facility] PALPITATIONS - In-person encounter Office Visit Rosas Hall MD [facility] HTN-11/24 NUC NEG 10/23 NUC 07/21 NUCPALPITATIONS-06/[address] 1 DEGREE AV BLOCK HR 57-136PULMONARY HTN SECONDARY-12/26 ECHO MILD PHTN EF 60PALPITATIONSCAD-02/25 CAROTID NEGHTN-02/25 ECHO BUBBLE STUDY- DIASTOLIC DYS EF 60HTN essential--echo ef nl, 01/2023 - In-person encounter Office Visit Savage Bonner MD [facility] - In-person encounter Office Visit Savage Bonner MD [facility] - In-person encounter Office Visit Savage Bonner MD [facility] - In-person encounter Office Visit Savage Bonner MD [facility] - In-person encounter Office Visit Savage Bonner MD [facility] - In-person encounter Office Visit Savage Bonner MD [facility] PALPITATIONS-11/24 HOLTER SR 42-116 - In-person encounter Office Visit Savage Bonner MD [facility] - In-person encounter Office Visit Savage Bonner MD [facility] - In-person encounter Office Visit Savage Bonner MD [facility] - In-person encounter Office Visit Leon Muñoz MD [facility] PULMONARY EMBOLISMPULMONARY HTN SECONDARY-12/26 ECHO MILD PHTN EF 60PALPITATIONS - In-person encounter Office Visit Savage Bonner MD [facility] HTN-11/24 ECHO EF 60 - In-person encounter Office Visit Savage Bonner MD [facility] - In-person encounter Office Visit Savage Bonner MD [facility] [place] [facility] HTN-11/24 NUC NEG 10/23 NUC 07/21 NUCCHEST PAIN-09/21 CATH NL EF 60OBESITYHypercholesterolem ia, mixedADENOCARCINOMA, BREAST, RIGHT - MASTECTOMY - IN REMISSION VITAL SIGNS Date Observation Value Provider Body Mass Index (Ratio) 49.77 kg/m2 Kolby Hall MD blood pressure, diastolic 80 mm[Hg] Patsy Landon blood pressure, systolic 158 mm[Hg] Cass rich [place] oxygen saturation, oximetry 95 % Janeth [place] pulse rate 87 /[facility] E&M 12 /min Janeth [place] weight E&M 290 [lb_av] [facility] height E&M 64 [in_i] [facility] blood pressure, cuff size large Patsy simms [place] Body Mass Index (Ratio) 49.77 kg/m2 Kolby Hall MD oxygen saturation, oximetry 98 % Ruth [place] respiratory rate E&M 12 /min Ruth [place] blood pressure, cuff size large Cameron bitha [place] blood pressure, diastolic 78 mm[Hg] Ta bitha Ford blood pressure, systolic 158 mm[Hg] Tab itha Ford pulse rate 68 /min Ruth [place] weight E&M 290 [lb_av] Ruth Ford height E&M 64 [in_i] Ruth [place] Body Mass Index (Ratio) 49.94 kg/m2 Kolby Hall MD pulse rate 90 /min Ruth Ford blood pressure, cuff size large Ta bitha [place] blood pressure, diastolic 72 mm[Hg] Ta bitha Ford blood pressure, systolic 142 mm[Hg] Tab itha Ford oxygen saturation, oximetry 98 % Ruth Ford respiratory rate E&M 12 /min Ruth Ford weight E&M 291 [lb_av] Ruth Ford height E&M 64 [in_i] Ruth [place] Body Mass Index (Ratio) 49.94 kg/m2 Kolby Hall MD blood pressure, diastolic 88 mm[Hg] Li nkLogic blood pressure, systolic 142 mm[Hg] Samanta kLogic weight E&M 291 [lb_av] [facility] pulse rate 72 /min [facility] blood pressure, cuff size regular Isamar rodriguez [place] blood pressure, diastolic 88 mm[Hg] [facility] blood pressure, systolic 142 mm[Hg] [facility], [facility] 95 % [facility] respiratory rate E&M 18 /min Addis Bearden iller height E&M 64 [in_i] [facility] Body Mass Index (Ratio) 50.46 kg/m2 Kolby Hall MD pulse rate 71 /min [facility] blood pressure, diastolic 95 mm[Hg] [facility] blood pressure, systolic 145 mm[Hg] [facility] oxygen saturation, oximetry 97 % [facility] respiratory rate E&M 15 /min Addis Silva iller weight E&M 294 [lb_av] [facility] height E&M 64 [in_i] [facility] Body Mass Index (Ratio) 50.46 kg/m2 Kolby Hall MD blood pressure, diastolic 69 mm[Hg] Patsy Marin blood pressure, systolic 164 mm[Hg] Any a Tomas oxygen saturation, oximetry 98 % Veraniya Marin pulse rate 70 /min Vera Tomas blood pressure, cuff size large An gee Marin weight E&M 294 [lb_av] Vera Tomas height E&M 64 [in_i] Vera Tomas Body Mass Index (Ratio) 51.66 kg/m2 Kolby Hall MD blood pressure, diastolic 88 mm[Hg] Patsy Marin blood pressure, systolic 172 mm[Hg] Any a Tomas oxygen saturation, oximetry 97 % Vera Tomas pulse rate 73 /min Vera Tomas weight E&M 301 [lb_av] Vera Tomas blood pressure, cuff size large An gee Tomas height E&M 64 [in_i] Vera Tomas Body Mass Index (Ratio) 51.83 kg/m2 Kolby Hall MD blood pressure, cuff size regular Ke rri Deshawnuenedaniel blood pressure, diastolic 90 mm[Hg] Ke rri Deshawnuenenfeldjoao blood pressure, systolic 162 mm[Hg] Ker ri Deshawnuenenfeldjoao oxygen saturation, oximetry 98 % Tessa Mayank respiratory rate E&M 12 /min Tessa Ayush diazenedaniel pulse rate 63 /min Tessa Gruenenfe [facility] weight E&M 302 [lb_av] Tessa [facility]fe [facility] height E&M 64 [in_i] Tessa Gruenenfe [facility] Body Mass Index (Ratio) 52.18 kg/m2 Kolby Hall MD blood pressure, diastolic -1 mm[Hg] Jemma nkLog blood pressure, systolic 187 mm[Hg] Samanta kLogcandis blood pressure, diastolic 87 mm[Hg] magali Ligia blood pressure, systolic 187 mm[Hg] She bruke Ligia blood pressure, cuff size large magali Ligia weight E&M 304 [lb_av] Lindsey Ligia height E&M 64 [in_i] Lindsey Ligia respiratory rate E&M 20 /min Lindsey Ligia pulse rate 71 /min Lindsey Ligia oxygen saturation, oximetry 97 % Lindsey Strong respiratory rate E&M 16 /min Mary pardo [place] blood pressure, cuff size large Lali jackman Rivers height E&M 64 [in_i] [place] Body Mass Index (Ratio) 50.63 kg/m2 Kolby Hall MD blood pressure, diastolic 74 mm[Hg] St acy Shiva blood pressure, systolic 147 mm[Hg] Sta angie Shiva oxygen saturation, oximetry 98 % Cheryl Shiva respiratory rate E&M 16 /min Cheryl D susie pulse rate 74 /min Cheryl Shiva weight E&M 295 [lb_av] Cheryl Shiva height E&M 64 [in_i] Cheryl Shiva blood pressure, diastolic 80 mm[Hg] Ri az medzamanjinder blood pressure, systolic 130 mm[Hg] Lizzette z Cheyannemedzai Body Mass Index (Ratio) 50.63 kg/m2 Kolby Hall MD blood pressure, diastolic 72 mm[Hg] Li nkLogic blood pressure, systolic 149 mm[Hg] Samanta kLogic blood pressure, diastolic 72 mm[Hg] Sa ra Nevarez blood pressure, systolic 149 mm[Hg] Thad a Nevarez oxygen saturation, oximetry 97 % India Nevarez respiratory rate E&M 16 /min India Si ms pulse rate 79 /min India Nevarez blood pressure, cuff size regular Sa ra Nevarez weight E&M 295 [lb_av] India Nevarez height E&M 64 [in_i] India Nevarez Body Mass Index (Ratio) 50.63 kg/m2 Kolby Hall MD blood pressure, diastolic 90 mm[Hg] Ja cob Nacht blood pressure, systolic 160 mm[Hg] Rho royce Mendez blood pressure, resting Yes Rhon suzanne Vanessa oxygen saturation, oximetry 98 % Tricia Vanessa pulse rate 72 /min Tricia Vanessa blood pressure, cuff size regular Rh radha Vanessa respiratory rate E&M 16 /min Tricia Mendez weight E&M 295 [lb_av] Tricia Vanessa height E&M 64 [in_i] Tricia Mendez Body Mass Index (Ratio) 50.63 kg/m2 Kolby Hall MD blood pressure, cuff size regular Boo Martinsby blood pressure, diastolic 80 mm[Hg] Boo guillermo Martinsby blood pressure, systolic 118 mm[Hg] Julio Martinsby pulse rate 80 /min Amelia Martinsby oxygen saturation, oximetry 98 % Amelia Tim respiratory rate E&M 18 /min Amelia Martinsby weight E&M 295 [lb_av] Amelia Dumont height E&M 64 [in_i] Amelia [place] Body Mass Index (Ratio) 50.80 kg/m2 Kolby Hall MD blood pressure, cuff size regular Cy rogersuzanna Abdifatah blood pressure, diastolic 70 mm[Hg] Cy nthia Abdifatah blood pressure, systolic 150 mm[Hg] Imani thia Gardiner pulse rate 76 /min Yvette Campbel l oxygen saturation, oximetry 96 % Yvette Abdifatah respiratory rate E&M 18 /min Yvette Gardiner weight E&M 296 [lb_av] Yvette Campbel l height E&M 64 [in_i] Yvette Campbel l Body Mass Index (Ratio) 50.29 kg/m2 Kolby Hall MD pulse rate 61 /min Mita Block oxygen saturation, oximetry 98 % Mita Block blood pressure, diastolic 78 mm[Hg] Br ittany Block blood pressure, systolic 156 mm[Hg] Zofia ttany Block weight E&M 293 [lb_av] Mita Block respiratory rate E&M 16 /min Brittan y Block height E&M 64 [in_i] Mita Block Body Mass Index (Ratio) 54.06 kg/m2 Kolby Hall MD oxygen saturation, oximetry 97 % Mita Block pulse rate 91 /min Mita Block blood pressure, diastolic 80 mm[Hg] Br ittany Block blood pressure, systolic 148 mm[Hg] Zofia ttany Block weight E&M 315 [lb_av] Mita Block respiratory rate E&M 16 /min Brittan y Block height E&M 64 [in_i] Mita Block Body Mass Index (Ratio) 53.38 kg/m2 Kolby Hall MD blood pressure, cuff size regular Cy ntshabnama Gardiner blood pressure, diastolic 76 mm[Hg] Cy nthia Gardiner blood pressure, systolic 142 mm[Hg] Imani sageniya Gardiner weight E&M 311 [lb_av] Yvette Campbel l pulse rate 64 /min Yvette Campbel l respiratory rate E&M 16 /min Yvette Gardiner oxygen saturation, oximetry 93 % Yvette Gardiner height E&M 64 [in_i] Yvette Campbel l Body Mass Index (Ratio) 51.66 kg/m2 Kolby Hall MD blood pressure, diastolic 70 mm[Hg] Ki lleen Kaur blood pressure, systolic 128 mm[Hg] Kil rafaela Kaur oxygen saturation, oximetry 96 % Cale Kaur respiratory rate E&M 16 /min Gresham Kaur pulse rate 82 /min Gresham Kaur weight E&M 301 [lb_av] Gresham Kaur height E&M 64 [in_i] Cale Kaur Body Mass Index (Ratio) 52.07 kg/m2 Kolby Hall MD blood pressure, cuff size large Elena Rothman blood pressure, diastolic 80 mm[Hg] Elena Rothman blood pressure, systolic 160 mm[Hg] Tamara Rothman oxygen saturation, oximetry 99 % Antonia Rothman respiratory rate E&M 20 /min Stoney Rothman pulse rate 69 /min Antonia buckley weight E&M 303.4 [lb_av] Antonia coelho height E&M 64 [in_i] Antonia buckley Body Mass Index (Ratio) 51.80 kg/m2 Kolby Hall MD blood pressure, resting Yes Page Rothman blood pressure, diastolic 87 mm[Hg] Elena Rothman blood pressure, systolic 165 mm[Hg] Tamara Rothman oxygen saturation, oximetry 96 % Antonia Rothman respiratory rate E&M 20 /min Stoney Rothman pulse rate 82 /min Antonia buckley weight E&M 301.8 [lb_av] Antonia coelho height E&M 64 [in_i] Antonia Orozco harrycarmen Body Mass Index (Ratio) 52.00 kg/m2 Kolby Hall MD blood pressure, cuff size large Ria Darden blood pressure, diastolic 90 mm[Hg] Ria Darden blood pressure, systolic 150 mm[Hg] Daisy Darden oxygen saturation, oximetry 98 % Sara Darden respiratory rate E&M 16 /min Sara Darden pulse rate 74 /min Sara Darden weight E&M 303 [lb_av] Sara Darden height E&M 64 [in_i] Sara Darden Body Mass Index (Ratio) 52.18 kg/m2 Kolby Hall MD blood pressure, cuff size large Ria Darden blood pressure, diastolic 90 mm[Hg] Ria callahan Darden blood pressure, systolic 150 mm[Hg] Daisy lalagee Adelso oxygen saturation, oximetry 97 % Sara Adelso respiratory rate E&M 16 /min Sara Darden pulse rate 90 /min Sara Darden weight E&M 304 [lb_av] Sara Darden height E&M 64 [in_i] Sara Adelso blood pressure, diastolic 82 mm[Hg] Rachel seph [place] blood pressure, systolic 135 mm[Hg] Golden esparza [place] pulse rate 93 /min Jesse Machucaacopriti oxygen saturation, oximetry 97 % Jesse Manacopriti respiratory rate E&M 20 /min Jesse [place] weight E&M 296 [lb_av] Jesse Man[place] blood pressure, diastolic 77 mm[Hg] Talat Whipple RN blood pressure, systolic 155 mm[Hg] Rufus Whipple RN pulse rate 64 /min Rufus Whipple RN oxygen saturation, oximetry 99 % Rufus Whipple RN respiratory rate E&M 18 /min Rufus barkley RN weight E&M 290 [lb_av] Rufus Whipple RN blood pressure, diastolic 88 mm[Hg] Talat Whipple RN blood pressure, systolic 184 mm[Hg] Rufus Whipple RN pulse rate 72 /min Rufus Whipple RN oxygen saturation, oximetry 97 % Rufus Garcias RN respiratory rate E&M 16 /min Rufus Mitzi barkley RN weight E&M 300 [lb_av] Rufus Garcias RN blood pressure, diastolic 92 mm[Hg] De guerda Hurt blood pressure, systolic 153 mm[Hg] Kade Hurt pulse rate 69 /min Frederick Hurt oxygen saturation, oximetry 97 % Frederick Hurt respiratory rate E&M 18 /min Frederick Hurt weight E&M 286 [lb_av] Frederick Hurt blood pressure, diastolic, supine 76 mm[H g] Rachel Beck blood pressure, systolic, supine E&M 144 mm[Hg] Rachel Beck respiratory rate E&M 16 /min Rachel morales pulse rate 59 /min Rachel Beck oxygen saturation, oximetry 99 % Rachel Beck weight E&M 301 [lb_av] Rachel Beck blood pressure, diastolic 65 mm[Hg] Cameron Segal blood pressure, systolic 124 mm[Hg] Claudio Segal pulse rate 62 /min Moira Segal oxygen saturation, oximetry 95 % Moira Segal respiratory rate E&M 14 /min Moira Segal weight E&M 302 [lb_av] Moira Segal blood pressure, diastolic 78 mm[Hg] Strange blood pressure, systolic 157 mm[Hg] Kade Hurt pulse rate 68 /min Frederick Hurt oxygen saturation, oximetry 96 % Frederick Hurt respiratory rate E&M 16 /min Frederick Hurt weight E&M 286 [lb_av] Frederick Hurt blood pressure, diastolic 82 mm[Hg] Elena Lala'Jaime blood pressure, systolic 140 mm[Hg] Tamara NewberryJaime pulse rate 62 /min Devika NewberryJaime oxygen saturation, oximetry 97 % Devika Lala'Jaime respiratory rate E&M 18 /min Devika O'Jaime weight E&M 300 [lb_av] Devika Lala'Jaime blood pressure, diastolic 82 mm[Hg] Talat Whipple RN blood pressure, systolic 160 mm[Hg] Rufus Whipple RN pulse rate 64 /min Rufus Whipple RN oxygen saturation, oximetry 97 % Rufus Whipple RN respiratory rate E&M 16 /min Rufus barkley RN weight E&M 286 [lb_av] Rufus Whipple RN blood pressure, diastolic 71 mm[Hg] Talat Whipple RN blood pressure, systolic 179 mm[Hg] Rufus Whipple RN pulse rate 67 /min Rufus Whipple RN oxygen saturation, oximetry 98 % Rufus Whipple RN respiratory rate E&M 16 /min Rufus barkley RN weight E&M 293 [lb_av] Rufus Whipple RN blood pressure, diastolic, left arm 92 mm [Hg] Jesse Machucaacopriti blood pressure, systolic, left arm 157 mm [Hg] Jesse Machucaacopriti blood pressure, diastolic 92 mm[Hg] Rachel Machucaacop blood pressure, systolic 157 mm[Hg] Golden esparza Manacopriti pulse rate 56 /min Jesse Man[place] oxygen saturation, oximetry 97 % Jesse Machucaacop respiratory rate E&M 16 /min Jesse Machucaacopriti weight E&M 284 [lb_av] Jesse Machucaacopriti blood pressure, diastolic, left arm 80 mm [Hg] Amanda Samson blood pressure, systolic, left arm 126 mm [Hg] Amanda Samson blood pressure, diastolic 80 mm[Hg] Natalya Samson blood pressure, systolic 126 mm[Hg] Car yesenia ArmstrongChapin pulse rate 76 /min Amanda ArmstrongChapin oxygen saturation, oximetry 98 % Amanda ArmstrongChapin respiratory rate E&M 20 /min Amanda moon weight E&M 280 [lb_av] Amanda Chapin blood pressure, diastolic, left arm 76 mm [Hg] Jesse [place] blood pressure, systolic, left arm 148 mm [Hg] Jesse [place] blood pressure, diastolic 76 mm[Hg] Rachel seph [place] blood pressure, systolic 148 mm[Hg] Golden eph [place] pulse rate 68 /min [facility], [facility] 100 % [facility] E&M 16 /min Jesse [place] weight E&M 289 [lb_av] [facility] ALLERGIES Allergy Name Onset Date Reaction Criticality Status DYE High Criticality active VICODIN High Criticality active TETRACYCLINE High Criticality active ERYTHROMYCIN High Criticality active AUGMENTIN High Criticality active AVELOX High Criticality active NUBANE High Criticality active DEMEROL High Criticality active MOTRIN High Criticality active VIOXX High Criticality active CELEBREX High Criticality active RESULTS Date Observation Value Provider Reference Range Interpretation Location coagulation managed by Danni Marin RN international normalized ratio (INR) 1.2 Danni Marin RN Normal international normalized ratio (INR) 1.7 Marian Boston platelet count 215 10*3/mm3 Marian Boston hematocrit, blood 38.2 % Marian Boston alanine aminotransferase (SGPT), serum 44 1/L Marian Boston aspartate aminotransferase (SGOT), serum 24 1/L Marian Boston creatinine, serum 1.64 mg/dL Marian Boston potassium, serum 4.3 mmol/L Marian Boston sodium, serum 139 mmol/L Marian Boston yeast identified on urinalysis No Marian Boston urine crystals, microscopic None Marian Boston epithelial cells, urine, per microscopy moderate Marian Boston casts, urine None Marian Boston WBC urine on microscopy None Marian Boston bacteria, urine microscopy Moderate Marian Boston RBC urine by microscopy None Marian Boston leukocyte esterase, urine, by dipstick Negative Marian Boston urobilinogen, urine, semiquantitative (dipstick) Normal Marian Boston nitrite, urine, semiquantitative Negative Marian Boston RBC, urine, dipstick Negative Marian Boston bilirubin, urine Negative Marian Boston ketones, urine, by test strip Negative Marian Boston glucose, urine, semiquantitative Normal Marian Boston protein, urine, semiquantitative (dipstick) Negative Marian Boston pH, urine, semiquantitative 5.0 Marian Boston specific gravity, urine 1.010 Marian Boston urine color Pale Yellow Marian Boston appearance, urine Hazy Marian Boston PTT patient 42.6 s Marian Boston prothrombin time (patient) 23.2 s Marian Boston international normalized ratio (INR) 2.2 Marian Boston platelet count 228 10*3/uL Marian Boston red blood cell distribution width 15.0 % Marian Boston mean corpuscular hemoglobin concentration, RBC 34.0 g/dL Marian Boston mean corpuscular hemoglobin, RBC 28.0 pg Marian Boston mean corpuscular volume, RBC 82.5 fL [facility] hematocrit, blood 41.5 % [facility] hemoglobin, blood 14.1 g/dL [facility] erythrocyte (RBC) count 5.03 10*6/mm3 [facility] monocytes as percent of blood leukocytes 13.4 % [facility] lymphocytes as percent of blood leukocytes 39.0 % [facility] leukocyte count, blood 6.6 10*3/mm3 [facility] troponin I <0.04 [facility] creatine kinase, serum 601 1/L [facility] B-type natriuretic peptide <5 [facility] anion gap, serum 14.4 [facility] globulins, serum, total 3.5 g/dL [facility] estimated glomerular filtration rate 46 mL/min [facility] albumin/globulin ratio, serum 1.3 [facility] protein, total, serum 8.1 g/dL [facility] albumin, serum 4.6 g/dL [facility] bilirubin, serum, total 0.68 mg/dL [facility] alkaline phosphatase, serum 128 1/L [facility] alanine aminotransferase (SGPT), serum 57 1/L [facility] aspartate aminotransferase (SGOT), serum 40 1/L [facility] calcium, serum 9.9 mg/dL [facility] blood glucose, fasting 103 mg/dL [facility] creatinine, serum 1.48 mg/dL [facility] urea nitrogen, blood 12.8 mg/dL [facility] carbon dioxide, serum, total 27 mmol/L [facility] chloride, serum 102 mmol/L [facility] potassium, serum 4.4 mmol/L [facility] sodium, serum 139 mmol/L Marian Boston coagulation managed by Rufus Whipple RN international normalized ratio (INR) 24.7 Rufus Whipple RN prothrombin time (patient) 2.5 s Rufus Whipple RN prothrombin time (patient) 23.1 s Joselyn Couch international normalized ratio (INR) 2.3 Joselyn brennan B-type natriuretic peptide <5 Marian Boston troponin I 0.91 ng/mL Marian Boston creatine kinase, serum 184 1/L Marian Boston anion gap, serum 11.7 [facility] globulins, serum, total 3.8 g/dL Marian Boston estimated glomerular filtration rate 45 mL/min [facility] D-dimer quantitative mcg/mL 6.60 ug/mL [facility] prothrombin time (patient) 32.7 s Marian Boston international normalized ratio (INR) 3.3 Marian Boston platelet count 153 10*3/uL Marian Boston red blood cell distribution width 14.7 % Marian Boston mean corpuscular hemoglobin concentration, RBC 34.7 g/dL Marian Boston mean corpuscular hemoglobin, RBC 29.7 pg [facility] mean corpuscular volume, RBC 85.7 fL Marian Boston hematocrit, blood 40.1 % Marian Boston hemoglobin, blood 13.9 g/dL [facility] erythrocyte (RBC) count 4.68 10*6/mm3 Marian Boston monocytes as percent of blood leukocytes 12.8 % Marian Boston lymphocytes as percent of blood leukocytes 39.3 % Marian Boston leukocyte count, blood 8.1 10*3/mm3 Marian Boston HISTORY OF MEDICATION USE Medication Status Instructions Dates Provider Indications Com ments Banophen 25 mg capsule active TAKE 2 CAPSULES BY MOUTH EVERY 4 HOURS Dai Ventimiglia [employer] clonidine HCl 0.1 mg tablet active TAKE 1 TABLET BY MOUTH TWICE DAILY Dai HARDYP potassium chloride 20 mEq/15 mL liquid active Filiberto Gomez atorvastatin 10 mg tablet active TAKE 1 TABLET BY MOUTH EVERY DAY Dai HARDYP clotrimazole 1% cream active Filibreto Gomez betamethasone valerate 0.1% cream active Filiberto Gomez losartan 100 mg tablet active TAKE 1 TABLET BY MOUTH EVERY DAY Homar Sanon furosemide 40 mg tablet active TAKE 1 TABLET BY MOUTH EVERY DAY Dai Kochfernando HARDYP Cipro 250 mg tablet completed Take 1 tablet by mouth once a day - Rosas Hall MD levofloxacin 250 mg tablet active Take 1 tablet by mouth once a day Rosas Hall MD cephalexin 500 mg capsule completed - Rosas Hall MD amlodipine 2.5 mg tablet completed - Homar Sanon losartan 50 mg tablet completed TAKE 1 TABLET BY MOUTH EVERY DAY - Homar Sanon Medrol (Kedar) 4 mg tablets,dose pack completed Take 1 tablet by mouth as directed following package instructions - Dai Lew [employer] tramadol 50 mg tablet active as needed Amelia Dumont cholecalciferol (vitamin D3) 25 mcg (1,000 unit) tablet active Take 1 tablet once a day Yvette Gardiner Cortdemetri-B 1-1-0.1% lotion active Apply once a day Antonia Rothman losartan 50 mg tablet completed Take 1 tablet once a day - Damien Moody ATENOLOL 25 MG ORAL TABLET completed ONE TAB. DAILY - Jesse Yarbrough BYSTOLIC 5 MG ORAL TABLET completed 1/2 tablet daily - Rosas Hall MD DILTIAZEM HCL 120 MG ORAL TABLET completed once daily - Rosas Hall MD CARDIZEM 30 MG ORAL TABLET completed one tab twice daily - Rufus Whipple RN METOPROLOL SUCCINATE ER 25 MG ORAL TABLET EXTENDED RELEASE 24 HOUR completed po twice daily - Rufus Whipple RN warfarin 5 mg tablet active 1 tablet once a day Devika O'Jaime Ultram 50 mg tablet completed as needed - Filiberto Gomez LIPITOR 20 MG ORAL TABLET completed 1/2 TAB. DAILY - Frederick Hurt LISINOPRIL 10 MG ORAL TABLET completed po once a day - Devika O'Jaime FLEXERIL 10 MG TABS completed 1 tablet by mouth as needed - Rufus Whipple RN DARVOCET A500 100-500 MG TABS completed NEEDED FOR BACK - Devika O'Jaime Senokot 8.6 mg tablet completed to skin as needed - Filiberto Gomez K-EFFERVESCENT 25 MEQ ORAL TABLET EFFERVESCENT active as directed Amelia Dumont meclizine 25 mg tablet active 1 tablet by mouth as needed Amelia Dumont diphenhydramine HCl 25 mg tablet completed 1 tablet by mouth as needed - [facility] METOPROLOL TARTRATE 50 MG TABS (METOPROLOL TARTRATE) completed 1/2 tab AM 1/2 tab afternoon and one tablet PM - Savage Bonner MD Lasix 40 mg tablet completed 1 tablet by mouth twice a day - Homar Sanon lorazepam 1 mg tablet active 0.5 tablet by mouth Amelia Dumont pt did not have dose Protonix 40 mg tablet,delayed release (DR/EC) active 1 tablet by mouth once a day Amelia Dumont pt did not have dose SOCIAL HISTORY Date Observation Value Provider personal history of marijuana use no Dai Ventimiglia [facility] drug use no Dai Ventimig marlena [facility] alcohol use no Dai Ventimig marlena [facility] smoking status Never smoker Dai Gonzalezm iglia [facility] drug use none Homar Sanon alcohol use no Homar Sanon smoking status Never smoker Homar Sanon drug use none Filiberto Gomez alcohol use no Filiberto Gomez smoking status Never smoker Filiberto Gomez drug use none Homar Sanon alcohol use no Homar Sanon smoking status Never smoker Homar Sanon drug use none Homar Sanon alcohol use no Homar Sanon smoking status Never smoker Homar Beckford social history E&M P t lives alone. E thnicity: Smoking History: Priti palumbo has never smoked. Homar barbaramanjinder physical exercise, frequency, days per week no Vera Marin caffeine use, averag e drinks per day 0 /d Veraniya Marin smoking status Never smoker Veraniya Mrain social history reviewed E&M revi ewed - no changes required Rosas Hall MD social history E&M P t lives alone. E thnicity: Smoking History: Priti palumbo has never smoked. Homar barbaraari physical exercise, frequency, days per week no Vera Marin caffeine use, averag e drinks per day 0 /d Veraniya Marin smoking status Never smoker Veraniya Mairn social history reviewed E&M revi ewed - no changes required [facility] social history E&M P t lives alone. E thnicity: Smoking History: P linwood has never smoked. Homar barbaramanjinder physical exercise, frequency, days per week no Tessa Talley caffeine use, averag e drinks per day 0 /d Tessa Talley smoking status Never smoker Tessa reyes social history reviewed E&M revi ewed - no changes required Homar Sanon smoking status Never smoker Lindsey Strong social history reviewed E&M revi ewed - no changes required Homar Sanon physical exercise, frequency, days per week no Cheryl Shannon caffeine use, averag e drinks per day 0 /d Cheryl Shannon smoking status Never smoker Cheryl Shannon social history reviewed E&M revi ewed - no changes required Homar Sanon social history reviewed E&M revi ewed - no changes required Homar Sanon social history reviewed E&M revi ewed - no changes required Rosas Hall MD social history E&M P t lives alone. E thnicity: Smoking History: P atient has never smoked. Damien Moody physical exercise, frequency, days per week no Damien Moody caffeine use, averag e drinks per day 0 /d Damien Moody smoking status Never smoker Damien Moody social history reviewed E&M revi ewed - no changes required Damien Moody social history E&M P t lives alone. E thnicity: S moking History: P atient has never smoked. Homar Sanon social history reviewed E&M revi ewed - no changes required Homar Sanon social history reviewed E&M revi ewed - no changes required John Hernandes physical exercise, frequency, days per week no Yvette Gardiner caffeine use, averag e drinks per day 0 /d Yvette Gardiner smoking status Never smoker Yvette rene social history E&M P t lives alone. E thnicity: Smoking History: P atient has never smoked. John Hernandes social history reviewed E&M revi ewed - no changes required John Hernandes physical exercise, frequency, days per week no Mita Singer caffeine use, averag e drinks per day 0 /d John Hernandes smoking status Never smoker Mita arshad social history E&M P t lives alone. E thnicity: Smoking History: P linwood has never smoked. Damien Heidy social history reviewed E&M revi ewed - no changes required Damien Tuckerjerry physical exercise, frequency, days per week no Mita Singer caffeine use, averag e drinks per day none Mita Singer smoking status Never smoker Mita arshad social history E&M P t lives alone. E thnicity: Smoking History: P linwood has never smoked. Rosas Hall MD social history reviewed E&M revi ewed - no changes required Rosas Hall MD physical exercise, frequency, days per week no Yvette Gardiner caffeine use, averag e drinks per day none Yvette Gardiner smoking status Never smoker Yvette Ally rene social history reviewed E&M revi ewed - no changes required Rosas Hall MD social history E&M P t lives alone. E thnicity: Smoking History: Priti palumbo has never smoked. Rosas Hall MD physical exercise, frequency, days per week no Cale Natasha caffeine use, averag e drinks per day none Cale Natasha smoking status Never smoker Cale bearden social history E&M P t lives alone. E thnicity: Smoking History: Priti palumbo has never smoked. Rosas Hall MD social history reviewed E&M revi ewed - no changes required Rosas Hall MD physical exercise, frequency, days per week no Antonia Rothman alcohol use, average drinks per day none Antonia Rothman alcohol use no Antonia buckley caffeine use, averag e drinks per day none Antonia Rothman drug use none Antonia buckley smoking status Never smoker Antonia Mcbride number of grandchildren Rosas Hall MD T damon Hall MD social history reviewed E&M revi ewed - no changes required Rosas Hall MD social history E&M P t lives alone. E thnicity: Smoking History: P linwood has never smoked. Rosas Hall MD physical exercise, frequency, days per week no Antonia Rothman alcohol use, average drinks per day none Antonia Rothman alcohol use no Antonia bukcley caffeine use, averag e drinks per day none Antonia Rothman drug use none Antonia buckley smoking status Never smoker Antonia Mcbride social history E&M P t lives alone. E thnicity: Smoking History: Priti palumbo has never smoked. Rosas Hall MD social history reviewed E&M revi ewed - no changes required Rosas Hall MD physical exercise, frequency, days per week no Sara Darden alcohol use, average drinks per day none Sara Darden alcohol use no Sara Darden caffeine use, averag e drinks per day none Sara Darden drug use none Sara Darden smoking status Never smoker Sara Darden social history E&M P t lives alone. E thnicity: Smoking History: Priti palumbo has never smoked. Rosas Hall MD social history reviewed E&M revi ewed - no changes required Rosas Hall MD alcohol use no Sara Darden physical exercise, frequency, days per week no Sara Darden alcohol use, average drinks per day none Sara Darden caffeine use, averag e drinks per day none Sara Darden drug use none Sara Darden smoking status Never smoker Sara Darden social history reviewed E&M reviewed Rufus Whipple RN social history reviewed E&M reviewed Rufus Whipple RN social history reviewed E&M reviewed Rufus Whipple RN social history reviewed E&M reviewed Rufus Whipple RN social history reviewed E&M reviewed Savage Bonner MD social history reviewed E&M reviewed Rufus Whipple RN social history reviewed E&M reviewed Rufus Whipple RN social history reviewed E&M reviewed Rufus Whipple RN social history reviewed E&M reviewed Rufus Whipple RN social history reviewed E&M reviewed Rufus Whipple RN social history reviewed E&M reviewed Rufus Whipple RN social history E&M P t lives alone. E thnicity: Rufus Whipple RN social history reviewed E&M reviewed Rufus Whipple RN social history reviewed E&M reviewed Rufus Whipple RN social history E&M Mother is dec eased from unknown causes<60 years of age F ather is alive. P t lives alone. E thnicity: Jennie Buckley physical exercise, frequency, days per week no Jennie Buckley drug use none Jennie Buckley caffeine use, averag e drinks per day none Jennie Buckley alcohol use, average drinks per day none Jennie Buckley smoking status Non-Smoker Jennie Buckley MENTAL STATUS Date Observation Value Provider assessment of judgme nt and insight E&M Alert and oriented to time, place and person. Mood and affect are normal. Rufus Whipple RN assessment of judgme nt and insight E&M Alert and oriented to time, place and person. Mood and affect are normal. Rufus Whipple RN assessment of judgme nt and insight E&M Alert and oriented to time, place and person. Mood and affect are normal. Rufus Whipple RN assessment of judgme nt and insight E&M Alert and oriented to time, place and person. Mood and affect are normal. Rufus Whipple RN assessment of judgme nt and insight E&M Alert and oriented to time, place and person. Mood and affect are normal. Savage Bonner MD assessment of judgme nt and insight E&M Alert and oriented to time, place and person. Mood and affect are normal. Rufus Whipple RN assessment of judgme nt and insight E&M Alert and oriented to time, place and person. Mood and affect are normal. Rufus Whipple RN assessment of judgme nt and insight E&M Alert and oriented to time, place and person. Mood and affect are normal. Rufus Whipple RN assessment of judgme nt and insight E&M Alert and oriented to time, place and person. Mood and affect are normal. Rufus Whipple RN assessment of judgme nt and insight E&M Alert and oriented to time, place and person. Mood and affect are normal. Rufus Whipple RN assessment of judgme nt and insight E&M Alert and oriented to time, place and person. Mood and affect are normal. Rufus Whipple RN assessment of judgme nt and insight E&M Alert and oriented to time, place and person. Mood and affect are normal. Rufus Whipple RN assessment of judgme nt and insight E&M Alert and oriented to time, place and person. Mood and affect are normal. Rufus Whipple RN FAMILY HISTORY Family Member Condition Mother Family History Unkno wn INSURANCE PROVIDERS Payer name Policy type / Coverage type [place] [employer] [place] (2) Medicaid [id number] ADVANCE DIRECTIVES Name Date DISCUSSED - NO DECISION MADE TREATMENT PLAN Date Name Performer [id number],SHomar i [id number],S, Homar medza i [id number],S, Homar medza i [id number],S, Homar medza i [id number],S, Homar medza i [id number],S, Homar medza i [id number],S, Homar medza i [id number],S, Homar medza i [id number],S, Homar medza i [id number],B, Homar medza i [id number],S, [id number], Homar medza i [id number],S, Homar medza i [id number],S, [facility] [id number],S, Homar medza i [id number],S, Homar medza i [id number],S, [facility] [id number],S, Homar medza i [id number],S, Homar medza i [id number],S, Homar medza i [id number],S, Homar medza i [id number],S, Homar medza i [id number],S, Homar medza i [id number],S, Homar medza i [id number],S, Homar Ahmedza i [id number],S, Homar Ahmedza i [id number],B, Homar Ahmedza i [id number],B, Homar Ahmedza i [id number],S, Homar Ahmedza i [id number],S, Homar Ahmedza i [id number],S, Homar Ahmedza i [id number],B, Homar Ahmedza i [id number],S, Homar Ahmedza i [id number],S, Homar Ahmedza i [id number],S, Homar Ahmedza i [id number],S, Homar Ahmedza i [id number],S, Homar Ahmedza i [id number],S, Homar Ahmedza i [id number],S, Homar Ahmedza i [id number],S, Homar Ahmedza i [id number],S, Homar Ahmedza i [id number],S, Homar Ahmedza i [id number],S, Homar Ahmedza i [id number],S, Homar Ahmedza i [id number],S, Homar Ahmedza i [id number],S, Homar Ahmedza i [id number],S, Damien Moody [id number],S, Damien Moody [id number],S, Damien Moody [id number],B, Damien Moody [id number],S, Damien Moody [id number],S, Damien Moody [id number],S, Homar Beckford i [id number],S, Homar Alexanderza i [id number],S, Homar Alexanderza i [id number],S, Homar Edwardmedza i [id number],S, Homar Edwardmedza i [id number],S, Homar Alexanderza i Cardiology:BP elevat ed today in office but reports better controlled at home P CP recently started on clonidine. Will have him monitor her BP H er updated medication list for this problem includes: Furosemide 40 Mg Tablet (Furosemide) ..... Take 1 tablet by mouth every day Clonidine Hcl 0.1 Mg Tablet (Clonidine hcl) ..... Take 1 tablet by mouth twice daily Losartan 100 Mg Tablet (Losartan) ..... Take 1 tablet by mouth every day T his visit has been a part of the consistent, comprehensive, and ongoing management of the chronic medical condition(s) listed above for the patient. Rosas Hall MD Cardiology:weight loss encourage d Dai Lew [facility] Cardiology Dai davila [facility] Cardiology: H er updated medication list for this problem includes: Atorvastatin 10 Mg Tablet (Atorvastatin) ..... Take 1 tablet by mouth every day Dai Lew [facility] Cardiology:BP elevat ed today in office but reports better controlled at home P CP recently started on clonidine. Will have him monitor her BP H er updated medication list for this problem includes: Furosemide 40 Mg Tablet (Furosemide) ..... Take 1 tablet by mouth every day Clonidine Hcl 0.1 Mg Tablet (Clonidine hcl) ..... Take 1 tablet by mouth twice daily Losartan 100 Mg Tablet (Losartan) ..... Take 1 tablet by mouth every day Dai Lew [facility] Cardiology: H er updated medication list for this problem includes: Warfarin 5 Mg Tablet (Warfarin) ..... 1 tablet once a day [facility] Cardiology: B P today: 158/78 P rior BP: 142/72 (02/26/2024) Labs Reviewed: C reat: 1.64 (11/03/2011) Her updated medication list for this problem includes: Losartan 100 Mg Tablet (Losartan) ..... Take 1 tablet by mouth every day Furosemide 40 Mg Tablet (Furosemide) [facility]: H er updated medication list for this problem includes: Losartan 100 Mg Tablet (Losartan) ..... Take 1 tablet by mouth every day Furosemide 40 Mg Tablet (Furosemide) [facility]: H er updated medication list for this problem includes: Atorvastatin 10 Mg Tablet (Atorvastatin) [facility] Cardiology:continues on warfarin [facility] Cardiology: H er updated medication list for this problem includes: Losartan 100 Mg Tablet (Losartan) ..... Take 1 tablet by mouth every day Furosemide 40 Mg Tablet (Furosemide) [facility] Cardiology: H er updated medication list for this problem includes: Atorvastatin 10 Mg Tablet (Atorvastatin) [facility] Cardiology:improved H er updated medication list for this problem includes: Warfarin 5 Mg Tablet (Warfarin) ..... 1 tablet once a day [facility]: H er updated medication list for this problem includes: Losartan 100 Mg Tablet (Losartan) ..... Take 1 tablet by mouth every day Furosemide 40 Mg Tablet (Furosemide) [facility]ai Cardiology: B P today: 142/88 P rior BP: 145/95 (08/13/2023) Labs Reviewed: C reat: 1.64 (11/03/2011) Her updated medication list for this problem includes: Losartan 50 Mg Tablet (Losartan) ..... Take 1 tablet by mouth every day Furosemide 40 Mg Tablet (Furosemide) [facility] Cardiology: H er updated medication list for this problem includes: Warfarin 5 Mg Tablet (Warfarin) ..... 1 tablet once a day [facility] Rosas Hall MD Cardiology Rosas Hall MD Cardiology:Will comp are home BP cuff to ours. If BP remains high will increase Losartan. Rosas Hall MD Cardiology:Got a lot of pain with the lymphedema pump. Has chronic pigmentation changes. Rosas Hall MD Cardiology:Will check echo. Kolby Hall MD Cardiology [facility] follow up Rosas alicea MD Cardiology follow up Rosas alicea MD Cardiology follow up Rosas alicea MD Cardiology follow up Rosas alicea MD Cardiology Rosas Hall MD Cardiology Rosas Hall MD Cardiology Rosas Hall MD Cardiology Rosas Hall MD Cardiology Rosas Hall MD Cardiology Follow up Rosas alicea MD Cardiology Follow up Rosas alicea MD Cardiology Follow up Rosas alieca MD Cardiology Follow up Rosas alicea MD Cardiology Follow up Rosas alicea MD Cardiology:On Coumadin. Follows with Dr. Dupree. Rosas Hall MD Cardiology Rosas Hall MD Cardiology Rosas Hall MD Cardiology:White mariela t HTN. Has been checking BP at home, in a normal range. Rosas Hall MD Cardiology Follow up Rosas alicea MD Cardiology Follow up Rosas alicea MD Cardiology Follow up Rosas alicea MD Cardiology Follow up Rosas alicea MD Cardiology Follow up Rosas alicea MD [facility] Follow up To aryan Hall MD [facility] Follow up To aryan Hall MD [facility] Follow up To aryan Hall MD [facility] Follow up To aryan Hall MD [facility] Follow up To aryan Hall MD Date Name Stress Regadenoson Complete Echo Complete Echo CXR- PA/Lat Holter Monitor 48 hr CBC (INCLUDES DIFF/P LT) COMPREHENSIVE METABO LIC PANEL, W/EGFR TSH, free T4, total T3 Holter Monitor 48 hr Holter Monitor 48 hr Complete Echo TSH, free T4, total T3 PROBNP, N TERMINAL IRON AND TOTAL IRON BINDING CAPACITY FERRITIN CBC (INCLUDES DIFF/P LT) LIPID PANEL COMPREHENSIVE METABO LIC PANEL, W/EGFR Venous Doppler Bilat eral LE Complete Echo Holter Monitor 24 Hr Holter Monitor 24 Hr Complete Echo Complete Echo Stress Test - [place] Complete Echo Holter Monitor 24 Hr HISTORY OF PROCEDURES Procedure Date Procedure Name Provider Procedure Notes S tatus Complex e/m visit add on Rosas Hall MD completed Protime Miguel Blancas MD compl eted EKG Rosas Hall MD completed EKG Rosas Hall MD completed Holter, 24 or 48 Rosas Hall MD com pleted Holter, 24 or 48 Rosas Hall MD com pleted Holter, 24 or 48 Rosas Hall MD com pleted EKG Rosas Hall MD completed EKG Rosas Hall MD completed FVC / MVV - 55940 Rosas Hall MD co mpleted BLOOD COUNT HEMOGLOBIN Rosas Hall MD completed FRC - 65986 Rosas Hall MD complete d SpO2 w/o 6min walk/titration Rosas Hall MD completed DLCO - 69630 Rosas Hall MD complet ed EKG Rosas Hall MD completed SNOMED-CT: 615008515766930 Current Medications Documented Rosas Hall MD completed SNOMED-CT: 45853909 Physical Exam, Performed: Pulse Exam of Foot Rosas Hall MD completed SNOMED-CT: [id number] Current Medications Documented Rosas Hall MD completed Event Monitor Rosas Hall MD comple lina SNOMED-CT: 35808967 Physical Exam, Performed: Pulse Exam of Foot Rosas Hall MD completed EKG Rosas Hall MD completed SNOMED-CT: [id number] Current Medications Documented Rosas Hall MD completed EKG Savage Bonner MD complet ed EKG Leon thrasher MD completed
--- OUTSIDE RECORDS SUMMARY | 2024-10-27 11:53 | XMS_ITS | Patient Health Summary ---
Author Organization [facility] Address [address] [place] [address] Care Team Providers Care Ski Lift Operator Name Role Phone Franco Magdaleno MD Primary Care Provider [phone] Note from [facility],non-owned Affiliates and Associated Physician Practices is amultiple site organization consisting of ambulatory clinics and hospital sitesin [place], [place], [place] and [place]. This disclosure is being madepursuant to the Care Everywhere program and may not contain all information available regarding this patient. Last updated 18.[facility] Allergies * Augmentin(Diarrhea) * Beta Adrenergic Blockers(Palpitations) * Celecoxib(Other) * Contrast-Iodinated Agents For Ct/Other(Unknown) -High Criticality * Erythromycin(Unknown) * Hydrocodone-Acetaminophen(Unknown) * Hydroxyzine(Unknown) * Ibuprofen(Unknown) * Meperidine(Other) * Metronidazole(Vomiting) * Moxifloxacin(Other) -High Criticality * Pantoprazole(Unknown) * Rofecoxib(Unknown) * Tetracycline(Other) Medications * Be aware that medications may not be up to date on this document. Alwaysverify current medications with the patient. * traMADol (ULTRAM) 50 MG tablet(Started 06/16/2020) Take by mouth once daily as needed * LORazepam (ATIVAN) 1 MG tablet(Started 06/23/2020) Take by mouth as needed * warfarin (COUMADIN) 5 MG tablet(Started 06/23/2020) Take by mouth once daily * meclizine (ANTIVERT) 25 MG tablet(Started 05/10/2020) Take by mouth as needed * losartan (COZAAR) 25 MG tablet(Started 05/28/2020) Take by mouth once daily * betamethasone dipropionate (DIPROSONE) 0.05 % cream Apply to affected area once daily * clotrimazole (LOTRIMIN AF) 1 % cream Apply to affected area once daily * clotrimazole-betamethasone (LOTRISONE) 1-0.05 % cream Apply to affected area once daily * furosemide (LASIX) 40 MG tablet(Started 06/14/2020) Take by mouth once daily * pantoprazole EC (PROTONIX) 40 MG tablet Take by mouth every 24 hours * pentoxifylline CR (TRENTAL) 400 MG tablet(Started 07/01/2020) Take 1 tablet by mouth 3 times daily 5 refills by 07/01/2021 * vitamin D, ergocalciferol, (DRISDOL) 1.25 MG (87758 UT) capsule(Started 07/05/2020) Take 1 capsule by mouth every 7 days * ciprofloxacin-dexamethasone (CIPRODEX) 0.3-0.1 % otic suspension(Started 02/11/2021) INSTILL 4 DROPS INTO RIGHT EAR TWICE DAILY FOR 7 DAYS * lidocaine (LIDODERM) 5 % patch lidocaine 5 % topical patch UNWRAP AND APPLY 1/3 PATCH TO SKIN AT 7 AM AND 7 PM OFF * ondansetron (ZOFRAN) 4 MG tablet ondansetron HCl 4 mg tablet TAKE 1 TABLET BY MOUTH THREE TIMES DAILY NEEDED * losartan (COZAAR) 50 MG tablet losartan 50 mg tablet TAKE 1/2 TABLET BY MOUTH EVERY DAY * LORazepam (ATIVAN) 0.5 MG tablet lorazepam 0.5 mg tablet TAKE 2 TABLETS BY MOUTH TWICE DAILY NEEDED FOR ANXIETY * BANOPHEN 25 MG capsule(Started 04/10/2022) TAKE 2 CAPSULES BY MOUTH EVERY 4 HOURS * bacitracin 500 UNIT/GM ophthalmic ointment(Started 08/06/2021) * albuterol HFA (PROVENTIL; VENTOLIN; PROAIR) 108 (90 Base) MCG/ACT inhaler (Started 04/15/2022) * ammonium lactate (LAC-HYDRIN) 12 % cream(Started 04/18/2022) Apply to affected area once daily 5 refills by 04/18/2023 * urea (Carmol;Vanamide) 40 % cream(Started 08/22/2022) Apply to affected areas on legs once daily, 30 DS 5 refills by 08/22/2023 Active Problems Problem Noted Date Diagnosed Date Gastroesophageal reflux disease without esophagi tis 01/04/2022 Encounter for medication refill 10/24/2021 Exposure to SARS-associated coronavirus 10/17/19 22 Sinus bradycardia 10/17/2021 Other specified dermatitis 03/11/2021 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
--- OUTSIDE RECORDS SUMMARY | 2024-10-27 11:53 | XMS_ITS | Referral Summary ---
Author Organization [facility] Address [address] [place] [address] Care Team Providers Care Wrapper Sorter Name Role Phone Franco Magdaleno MD Primary Care Provider [phone] Source Comments [facility],non-owned Affiliates and Associated Physician Practices is amultiple site organization consisting of ambulatory clinics and hospital sitesin [place], [place], [place] and [place]. This disclosure is being madepursuant to the Care Everywhere program and may not contain all information available regarding this patient. Last updated 18.[facility] Allergies Active Allergy Reactions Criticality Noted Date Comments Augmentin Diarrhea 07/01/2020 Beta Adrenergic Blockers Palpitations 0 Celecoxib Other 07/01/2020 Contrast-Iodinated Agents For Ct/Other Unknown High 12/01/2009 Erythromycin Unknown 07/01/2020 Hydrocodone-Acetaminophen Unknown 07/01/2020 Hydroxyzine Unknown 07/01/2020 Ibuprofen Unknown 07/01/2020 Meperidine Other 07/01/2020 Metronidazole Vomiting 07/01/2020 Moxifloxacin Other High 12/01/2009 Pantoprazole Unknown 07/01/2020 Rofecoxib Unknown 07/01/2020 Tetracycline Other 07/01/2020 Medications * Be aware that medications may not be up to date on this document. Alwaysverify current medications with the patient. Medication Sig Dispensed Refills Start Date End Date Status traMADol (ULTRAM) 50 MG tablet Take by mouth once daily as needed 06/16/2020 Active LORazepam (ATIVAN) 1 MG tablet Take by mouth as needed 06/23/2020 Active warfarin (COUMADIN) 5 MG tablet Take by mouth once daily 06/23/2020 Active meclizine (ANTIVERT) 25 MG tablet Take by mouth as needed 05/10/2020 Active losartan (COZAAR) 25 MG tablet Take by mouth once daily 05/28/2020 Active betamethasone dipropionate (DIPROSONE) 0.05 % cream Apply to affected area once daily Active clotrimazole (LOTRIMIN AF) 1 % cream Apply to affected area once daily Active clotrimazole-betameth asone (LOTRISONE) 1-0.05 % cream Apply to affected area once daily Active furosemide (LASIX) 40 MG tablet Take by mouth once daily 06/14/2020 Active pantoprazole EC (PROTONIX) 40 MG tablet Take by mouth every 24 hours Active pentoxifylline CR (TRENTAL) 400 MG tabletIndications:Sta sis dermatitis of both legs Take 1 tablet by mouth 3 times daily 90 tablet 5 07/01/2020 Active Additional Information Patient not taking.Reported on 12/21/2020 vitamin D, ergocalciferol, (DRISDOL) 1.25 MG (95799 UT) capsule Take 1 capsule by mouth every 7 days 07/05/2020 Active ciprofloxacin-dexamet hasone (CIPRODEX) 0.3-0.1 % otic suspension INSTILL 4 DROPS INTO RIGHT EAR TWICE DAILY FOR 7 DAYS 02/11/2021 Active lidocaine (LIDODERM) 5 % patch lidocaine 5 % topical patch UNWRAP AND APPLY 1/3 PATCH TO SKIN AT 7 AM AND 7 PM OFF Active ondansetron (ZOFRAN) 4 MG tablet ondansetron HCl 4 mg tablet TAKE 1 TABLET BY MOUTH THREE TIMES DAILY NEEDED Active losartan (COZAAR) 50 MG tablet losartan 50 mg tablet TAKE 1/2 TABLET BY MOUTH EVERY DAY Active LORazepam (ATIVAN) 0.5 MG tablet lorazepam 0.5 mg tablet TAKE 2 TABLETS BY MOUTH TWICE DAILY NEEDED FOR ANXIETY Active BANOPHEN 25 MG capsule TAKE 2 CAPSULES BY MOUTH EVERY 4 HOURS 04/10/2022 Active bacitracin 500 UNIT/GM ophthalmic ointment 08/06/2021 Active albuterol HFA (PROVENTIL; VENTOLIN; PROAIR) 108 (90 Base) MCG/ACT inhaler 04/15/2022 Active ammonium lactate (LAC-HYDRIN) 12 % creamIndications:Rete ntion hyperkeratosis Apply to affected area once daily 385 g 5 04/18/2022 Active Additional Information Patient not taking.Reported on 08/22/2022 urea (Carmol;Vanamide) 40 % creamIndications:Rete ntion hyperkeratosis Apply to affected areas on legs once daily, 30 DS 454 g 5 08/22/2022 Active Active Problems Problem Noted Date Diagnosed Date [...] on file Sexual Orientation Not on file Plan of Treatment Not on file Care Teams Wrapper Sorter Relationship Specialty Start Date End Date Franco Magdaleno MD [address] [place] [address] PCP - General 11/21/22
--- OUTSIDE RECORDS SUMMARY | 2024-10-27 11:53 | XMS_ITS | Encounter Summary ---
Author Organization [facility] Address [address] [place] [address] Phone Care Team Providers Care Driver/Merchandiser Name Role Phone Franco Magdaleno MD Primary Care Provider Genie Kimbrough MD Unavailable [phone] Encounter Details Date Type Department Care Team (Late st Contact Info) Description 01/12/2024 Telephone [facility] [address] [place] [address] Genie Kimbrough MD [address] [address] Social History Tobacco Use Types Packs/Day Years Used Date Smoking Tobacco: Never Smokeless Tobacco: Never Alcohol Use Standard Drinks/Week Comments Never 0 (1 standard drink = 0.6 oz pur e alcohol) Sexually Active Control Partners Comments Not Currently Comments No Sex and Gender Information Value Date Recorded Sex Assigned at Not on file 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 * Telephone Encounter - Dai Covarrubias - 01/18/2024 2:21 PM CDT Left message for pt to call back. * Telephone Encounter - Genie Kimbrough MD - 01/12/2024 7:11 PM CDT OV in 8 weeks documented in this encounter Plan of Treatment Not on file documented as of this encounter Visit Diagnoses Not on filedocumented in this encounter Care Teams Driver/Merchandiser Relationship Specialty Start Date End Date Franco Magdaleno MD PCP - General Internal Medicine 05/17/23 Genie Kimbrough MD [address] [address] Consulting Physician Urology 05/25/23 documented as of this encounter
--- OUTSIDE RECORDS SUMMARY | 2024-10-27 11:53 | XMS_ITS | Clinical Summary ---
Author Organization [facility] Address [address] [place] [address] Care Team Providers Care Senior Financial Consultant Name Role Phone Franco Magdaleno MD Primary Care Provider [phone] Source Comments [facility],non-owned Affiliates and Associated Physician Practices is amultiple site organization consisting of ambulatory clinics and hospital sitesin [place], [place], [place] and [place]. This disclosure is being madepursuant to the Care Everywhere program and may not contain all information available regarding this patient. Last updated 18.[facility] Allergies Active Allergy Reactions Criticality Noted Date [...] 12/21/2020 vitamin D, ergocalciferol, (DRISDOL) 1.25 MG (84452 UT) capsule Take 1 capsule by mouth [...] Resolved Date Acute otitis media 04/17/2022 2 Family History Medical History Relation Name Comments None Known Brother None Known Father None Known Maternal Aunt None Known Maternal Grandfather None Known Maternal Grandmother None Known Maternal Uncle None Known Mother None Known Other None Known Paternal Aunt None Known Paternal Grandfather None Known Paternal Grandmother None Known Paternal Uncle None Known Sister Asthma Neg Hx CVA Neg Hx Cancer - Breast Neg Hx Cancer - Other Neg Hx Cancer - Skin, Melanoma Neg Hx Cancer - Skin, Non Melanoma Neg Hx Eczema Neg Hx Hemophilia Neg Hx Psoriasis Neg Hx Relation Name Status Comments Brother Father Maternal Aunt Maternal Grandfather Maternal Grandmother Maternal Uncle Mother Other Paternal Aunt Paternal Grandfather Paternal Grandmother Paternal Uncle Sister Social History Tobacco Use Types Packs/Day Years Used Date Smoking Tobacco: Never Smokeless Tobacco: Never Tobacco Cessation:Counseling Given: Not Answered Sex and Gender Information Value Date Recorded Sex Assigned at Not on file Gender Identity Not on file Sexual Orientation Not on file Plan of Treatment Health Maintenance Due Date Last Done Comments BONE DENSITY TESTING 1950 COLOGUARD (AGES 45-75) - COL ON CA SCREENING 1948 COLON MONITORING 1948 COLONOSCOPY - COLON CA SCREENING 1948 CT COLONOGRAPHY - COLON CA SCREENING 1948 Colorectal Cancer Screening 1948 FIT - COLON CA SCREENING 1948 FLEX SIG - COLON CA SCREENING 1948 LIPID TESTING 1948 MAMMOGRAM 1948 HEPATITIS C SCREENING 12/12/1966 DTAP/TDAP/TD VACCINES (1 - Tdap) 12/17/1967 PNEUMOCOCCAL VACCINE 50+ (1 of 1 - PCV) 1998 ZOSTER VACCINE (1 of 2) 1998 Respiratory Syncytial Virus (RSV) Vaccine Pt: or over 60 yrs (1 - 1-dose 75+ series) 12/17/2023 COVID-19 VACCINE (1 - 2023-2 5 season) 2024 INFLUENZA VACCINE (#1) 2024 DEPRESSION SCREENING 09/17/2024 HEPATITIS B VACCINE Aged Out No longe r eligible based on patient's age to complete this topic HIB VACCINE Aged Out No longer eligi ble based on patient's age to complete this topic HPV VACCINE Aged Out No longer eligi ble based on patient's age to complete this topic MENINGOCOCCAL (Group B) VACCINE Aged Out No longer eligible based on patient's age to complete this topic MENINGOCOCCAL VACCINE Aged Out No alaina siva eligible based on patient's age to complete this topic Care Teams Senior Financial Consultant Relationship Specialty Start Date End Date Franco Magdaleno MD [address] [place], [place] [address] PCP - General 11/21/22
--- OUTSIDE RECORDS SUMMARY | 2024-10-27 11:53 | XMS_ITS | Clinical Summary ---
Author Organization [facility] Address [address] [place] [address] Phone Care Team Providers Care Janitorial Assistant Name Role Phone Franco Magdaleno MD Primary Care Provider [phone] Genie Kimbrough MD Unavailable [phone] Allergies Active Allergy Reactions Criticality Noted Date Comments Amoxicillin-Pot Clavulanate Diarrhea High 12/02/19 10 Beta Adrenergic Blockers Palpitations 0 Celecoxib Other (see Comments) High 12/01/2009 Cephalexin Other (see Comments) 05/25/2023 Erythromycin Other (see Comments),Unknown High 12/01/2009 Hydrocodone-Acetaminophen Unknown 07/01/2020 Hydroxyzine Unknown 07/01/2020 Ibuprofen Other (see Comments),Unknown High 12/01/2009 Iodinated Contrast Media Unknown High 12/01/2009 Meperidine Other (see Comments) 07/01/2020 Metronidazole Vomiting 07/01/2020 Moxifloxacin Other (see Comments) High 12/01/2009 Pantoprazole Other (see Comments),Unknown 07/01/2020 Rofecoxib Other (see Comments),Unknown High 12/01/2009 Tetracycline Unknown,Other (see Comments) High 12/01/2009 Medications warfarin (COUMADIN) 5 MG Tablet TAKE 1 TABLET BY MOUTH DAILY AND EVERY THIRD DAY TAKE 1 AND 1/2 TABLETS 04/03/20 23 Active Urea 40 % Cream 08/22/20 22 Active triamcinolone (KENALOG) 0.1 % Ointment BNIH TO AFFECTED AREAS ON BOTH LEGS BID NEEDED WHEN PINK AND ITCHY Active traMADol (ULTRAM) 50 MG Tablet TAKE 1 TABLET BY MOUTH EVERY DAY NEEDED FOR PAIN 06/16/20 Active solifenacin (VESICARE) 5 MG Tablet TAKE 1 TABLET BY MOUTH EVERY DAY FOR 30 DAYS 05/08/20 Active simvastatin (ZOCOR) 20 MG Tablet Take 1 tablet every day by oral route. Active senna (SENOKOT) 8.6 MG Tablet Apply. 09/17/18 Active potassium chloride SA (KLORCON M) 20 MEQ Tablet Controlled Release TK 1 T PO QD Active pentoxifylline (TRENtal) 400 MG Tablet Controlled Release TK 1 T PO TID 07/01/20 Active pantoprazole (PROTONIX) 40 MG Tablet Delayed Response Take 1 tablet every day by oral route. 09/17/18 Active ondansetron (ZOFRAN) 4 MG Tablet TAKE 1 TABLET BY MOUTH THREE TIMES DAILY NEEDED FOR NAUSEA Active nystatin (MYCOSTATIN) 676817 UNIT/GM Ointment APPLY TO THE AFFECTED AREA(S) BY TOPICAL ROUTE 2 TIMES PER DAY Active naproxen (NAPROSYN) 500 MG Tablet Take 1 tablet twice a day by oral route. Active montelukast (SINGULAIR) 10 MG Tablet Take 1 tablet every day by oral route. Active meclizine (ANTIVERT) 25 MG Tablet Take 1 Tablet by mouth 3 times daily. 09/17/18 Active losartan (COZAAR) 50 MG Tablet Take 50 mg by mouth daily. 05/10/20 Active LORazepam (ATIVAN) 1 MG Tablet Take 0.5 mg by mouth. 09/17/18 Active lidocaine (LIDODERM) 5 % Patch 05/23/20 Active furosemide (LASIX) 40 MG Tablet Take 40 mg by mouth daily. 05/21/20 Active fluconazole (DIFLUCAN) 150 MG Tablet Take 1 tablet by oral route. Active ergocalciferol (VITAMIN D) 00251 UNIT Capsule TAKE 1 CAPSULE BY MOUTH 2 TIMES A MONTH 05/07/20 Active Banophen 25 MG Capsule TAKE 2 CAPSULES BY MOUTH EVERY 4 HOURS 05/22/20 Active clotrimazole (LOTRIMIN) 1 % Cream APPLY TOPICALLY TO RASH TWICE DAILY DIRECTED 06/14/20 23 Active Vitamin D3 1000 UNIT Tablet cholecalciferol (vitamin D3) 25 mcg (1,000 unit) tablet 12/03/19 20 Active betamethasone valerate (VALISONE) 0.1 % Cream APPLY THIN LAYER TOPICALLY TO THE AFFECTED AREA EVERY DAY 02/29/20 23 Active albuterol 108 (90 Base) MCG/ACT Aerosol Solution 04/15/20 22 Active chlorhexidine (PERIDEX) 0.12 % Solution SWISH 15ML FOR 30 SECONDS THEN SPIT TWICE DAILY 04/26/20 23 Active cyclobenzaprin e (FLEXERIL) 10 MG Tablet TAKE 1/2 TABLET BY MOUTH EVERY 8 HOURS NEEDED FOR MUSCLE SPASM Active Family History Medical History Relation Name Comments Colon Cancer Father Lung Cancer Father Prostate Cancer Father Heart Disease Mother Hypertension Mother Renal Failure Mother Relation Name Status Comments Father Mother Social History Tobacco Use Types Packs/Day Years Used Date Smoking Tobacco: Never Smokeless Tobacco: Never Tobacco Cessation:Counseling Given: Not Answered Alcohol Use Standard Drinks/Week Comments Never 0 (1 standard drink = 0.6 oz pur e alcohol) Sexually Active Control Partners Comments Not Currently Comments No Sex and Gender Information Value Date Recorded Sex Assigned at Not on file 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 Gender Identity Not on file Sexual Orientation Not on file Last Filed Vital Signs Vital Sign Reading Time Taken Comments Blood Pressure 179/86 04/25/2024 10:22 AM CDT Pulse 89 04/25/2024 10:22 AM CDT Temperature 36.2 C (97.2 F) 08/21/2023 8:17 AM ELECTRONICS MAINTENANCE TECHNICIAN Respiratory Rate 20 04/25/2024 10:22 AM CDT Oxygen Saturation 98% 04/25/2024 10:22 AM CDT Inhaled Oxygen Concentration - - Weight 132.5 kg (292 lb) 04/25/2024 10:22 AM CDT Height 160 cm (5' 3 ) 04/25/2024 10:22 AM CDT Body Mass Index 51.73 04/25/2024 10:22 AM CDT Plan of Treatment Health Maintenance Due Date Last Done Comments DEXA Bone Density 1950 Hepatitis C Virus (HCV) Screening 1950 Mammogram Unilateral 1950 TdaP Immunization 1950 Colonoscopy 1993 Colorectal Cancer Screening 1993 Cologuard 1998 Immunochemical Fecal Occult Blood 1998 Pneumococcal Immunization (5 0+ years) (1 of 1 - PCV) 1998 Zoster Immunization (1 of 2) 1998 Respiratory Syncytial Virus (RSV) Immunization (Adult) (1 - 1-dose 75+ series) 12/17/2023 Influenza Immunization (#1) 2024 SARS-COV-2 Immunization ( - season) 2024 03/09/2022, 02/16/2022 Hepatitis B Immunization Aged Out No longer eligible based on patient's age to complete this topic Meningococcal Immunization (ACWY) Aged Out No longer eligible b ased on patient's age to complete this topic Rotavirus Immunization Aged Out No lo nger eligible based on patient's age to complete this topic Insurance MEDICAID [employer] Care Teams Janitorial Assistant Relationship Specialty Start Date End Date Franco Magdaleno MD PCP - General Internal Medicine 05/17/23 Genie Kimbrough MD [address] [place] [address] Consulting Physician Urology 05/25/23
--- OUTSIDE RECORDS SUMMARY | 2024-10-27 11:53 | XMS_ITS | Encounter Summary ---
Author Organization [facility] Address [address] [place] [address] Phone Care Team Providers Care Shark Biologist Name Role Phone Franco Magdaleno MD Primary Care Provider Genie Kimbrough MD Unavailable [phone] Encounter Details Date Type Department Care Team (Late st Contact Info) Description 02/25/2024 Telephone [facility] [address] [place] [address] Genie Kimbrough MD [address] [address] Social History Tobacco Use Types Packs/Day Years Used Date Smoking Tobacco: Never Smokeless Tobacco: Never Alcohol Use Standard Drinks/Week Comments Never 0 (1 standard drink = 0.6 oz pur e alcohol) Sexually Active Control Partners Comments Not Currently Comments No Sex and Gender Information Value Date Recorded Sex Assigned at Not on file 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 BACKGROUND: Referral unable to be processed. ASSESSMENT: Request for provider review due to the following reason(s): Patient refusal or unable to contact patient. RECOMMENDATION: Based on the above information the provider has the following option(s): Cancel existing referral. and Edit existing referral with additional information. Where patient wants to have test's.? Lisa Ruano [facility] - Referrals opt 7 documented in this encounter Plan of Treatment Not on file documented as of this encounter Visit Diagnoses Not on filedocumented in this encounter Care Teams Shark Biologist Relationship Specialty Start Date End Date Franco Magdaleno MD PCP - General Internal Medicine 05/17/23 Genie Kimbrough MD [address] [place] [address] Consulting Physician Urology 05/25/23 documented as of this encounter
--- NOTE | 2024-10-27 13:08 | ED_ITS ---
HPI - Back Pain/Injury General Chief Complaint: Back Pain/Injury <Archana Espinoza PA-C - Last Filed: 10/29/24 18:10> Stated Complaint: LBP, right side x 1 month <Archana Espinoza PA-C - Last Filed: 10/29/24 18:10> Time Seen by Provider: 10/27/24 13:08 <Archana Espinoza PA-C - Last Filed: 10/29/24 18:10> Focused HPI: This is a 73 year old female that presents to the ER for back pain. Ongoing over the last week. No recent injuries. Reports chronic back pain, but this is worse than usual. Reports sharp left lower back pain. She has been taking Tylenol and Tramadol with little relief. Using heat pads. GENERAL: Well-appearing, well-nourished, and in no acute distress. HEAD: Normocephalic, atraumatic. CHEST: Clear to auscultation. ?No respiratory distress. HEART: Regular rate and rhythm.? NEURO: ?Alert and oriented x3. Patient screened in triage and initial orders placed.? ?Additional care and disposition to be based upon?diagnostic testing and treatment. <Archana Espinoza PA-C - Last Filed: 10/29/24 18:10> History of Present Illness HPI Narrative: I agree with the above HPI <Nino Mccann MD - Last Filed: 10/27/24 19:54> Related Data Home Medications: Home Medications ?Medication ?Instructions ?Recorded ?Confirmed ?Last Taken ?Type betamethasone dipropionate 0.05 % 1 applic topical DAILY PRN 08/17/22 08/17/22 Unknown History topical cream chlorhexidine gluconate 0.12 % 15 ml buccal DAILY 08/17/22 08/17/22 Unknown History mouthwash cholecalciferol (vitamin D3) 1,250 1,250 mcg PO WEEKLY 08/17/22 08/17/22 Unknown History mcg (50,000 unit) capsule clotrimazole 1 % topical cream 1 applic topical Q12H 08/17/22 08/17/22 Unknown History furosemide 40 mg tablet 40 mg PO QAM 08/17/22 08/17/22 Unknown History lorazepam 1 mg tablet 1 mg PO DAILY PRN 08/17/22 08/17/22 Unknown History losartan 25 mg tablet 25 mg PO DAILY 08/17/22 08/17/22 Unknown History meclizine 25 mg tablet 25 mg PO BID PRN 08/17/22 08/17/22 Unknown History pantoprazole 40 mg tablet,delayed 40 mg PO QAM 08/17/22 08/17/22 Unknown History release (Protonix) potassium chloride 20 mEq 20 meq PO DAILY 08/17/22 08/17/22 Unknown History tablet,extended release tramadol 50 mg tablet 50 mg PO Q6H PRN 08/17/22 08/17/22 Unknown History urea 40 % lotion 1 applic topical BID 08/17/22 08/17/22 Unknown History <Archana Espinoza PA-C - Last Filed: 10/29/24 18:10> Allergies/Adverse Reactions: Allergies Allergy/AdvReac Type Severity Reaction Status Date / Time acetaminophen (From Vicodin) Allergy Unknown Verified 08/17/22 13:27 citalopram (From Celexa) Allergy Unknown Verified 08/17/22 13:27 erythromycin base Allergy Palpitation Verified 09/03/22 12:27 s hydrocodone (From Vicodin) Allergy Unknown Verified 08/17/22 13:27 hydroxyzine (From Vistaril) Allergy Palpitation Verified 09/03/22 12:27 s iohexol (From contrast - CT, Allergy Unknown Verified 08/17/22 13:27 X-RAY) meperidine (From Demerol) Allergy Palpitation Verified 09/03/22 12:27 s nitrofurantoin (From Allergy Unknown Verified 08/17/22 13:27 Macrobid) pantoprazole (From Protonix) Allergy Unknown Verified 08/17/22 13:27 tetracycline Allergy Nausea Verified 09/03/22 12:27 <Archana Espinoza PA-C - Last Filed: 10/29/24 18:10> Review of Systems 2 Review of Systems: All systems reviewed & are unremarkable except as noted in HPI and below <Nino Mccann MD - Last Filed: 10/27/24 19:54> [facility] Past Medical History Medical History: Medical History Hypertension Lymphedema Morbid obesity <Archana Espinoza PA-C - Last Filed: 10/29/24 18:10> Surgical History Surgical History: Surgical History H/O mastectomy History of cholecystectomy <Archana Espinoza PA-C - Last Filed: 10/29/24 18:10> Family History Family History: Family History Father Lung cancer Sibling Lung cancer Hypertension Heart disease Grandparent Hypertension Heart disease <Archana Espinoza PA-C - Last Filed: 10/29/24 18:10> Social History Social History: Social History Smoking status: Never smoker Alcohol intake: never Substance use: never Lack of Transportation: No Lack of Food: Never True Current Housing: I Have Housing Concerned About Future Housing: No Difficulty Paying Gas/Electric Bills: No Difficulty Paying for Meds: No Currently Unemployed: No Education: High School Diploma/GED Difficulty w/ Childcare or Family Care: No <Archana Espinoza PA-C - Last Filed: 10/29/24 18:10> Exam 2 Narrative: APPEARANCE: Well appearing, no pain, no distress, well-nourished. HEAD: normocephalic, atraumatic. EYES: PERRLA/EOMI, conjunctivae clear. NOSE: Normal no drainage EARS:TMS clear with good light reflex. THROAT: Pharynx clear, no exudate. NECK: Supple. No adenopathy, no masses. RESPIRATORY: Airway patent, respirations nonlabored. Clear to auscultation bilaterally, no rales, rhonchi, wheezing. CARDIOVASCULAR: Regular rate and rhythm without murmurs rubs or gallops. ABDOMINAL: Soft, nontender, nondistended, normal bowel sounds MUSCULOSKELETAL: left lower back tenderness to palpation without deformity NEURO: Alert. Cranial nerves II through XII intact. grossly intact SKIN: Warm, dry. Normal Color <Nino Mccann MD - Last Filed: 10/27/24 19:54> Course Vital Signs Vital signs: Vital Signs Temperature 97.7 F 10/27/24 11:44 Pulse Rate 69 10/27/24 11:44 Blood Pressure 179/89 H 10/27/24 11:44 Pulse Oximetry 100 10/27/24 11:44 Temperature 97.7 F 10/27/24 11:44 Pulse Rate 68 10/27/24 15:08 Respiratory Rate 18 10/27/24 15:08 Blood Pressure 183/68 H 10/27/24 15:08 Pulse Oximetry 96 10/27/24 15:08 <Archana Espinoza PA-C - Last Filed: 10/29/24 18:10> Vital Signs Temperature 97.7 F 10/27/24 11:44 Pulse Rate 69 10/27/24 11:44 Blood Pressure 179/89 H 10/27/24 11:44 Pulse Oximetry 100 10/27/24 11:44 Temperature 97.7 F 10/27/24 11:44 Pulse Rate 68 10/27/24 15:08 Respiratory Rate 18 10/27/24 15:08 Blood Pressure 183/68 H 10/27/24 15:08 Pulse Oximetry 96 10/27/24 15:08 <Nino Mccann MD - Last Filed: 10/27/24 19:54> MDM - Back Pain/Injury MDM Narrative Medical decision making narrative: 73-year-old female presenting to the emergency department for evaluation for worsening back pain. Patient denies any acute falls or injuries. Patient states she is having left lower back pain with denies any radiation of the pain down her leg, denies any loss of bowel or bladder control. Patient does have tramadol at home which he has been taking for pain control without significant improvement. Patient has an allergy to Vicodin so she was unable to take hydrocodone. Patient is not diabetic. Patient will be started on a Medrol Dosepak provided Flexeril for muscle spasm control and patient was encouraged to have close follow-up with primary care physician for additional outpatient testing including outpatient MRI and physical therapy. CT imaging performed in the emergency department was negative for acute pathology. Patient and family were comfortable with plan for discharge and close follow-up. <Nino Mccann MD - Last Filed: 10/27/24 19:54> Differential Diagnosis Differential diagnosis: Likely lumbar radiculopathy, sciatica, strain of lumbar region, renal colic and pyelonephritis <Nino Mccann MD - Last Filed: 10/27/24 19:54> Lab Data Attestation: I reviewed the patient's lab results. <Nino Mccann MD - Last Filed: 10/27/24 19:54> Result diagrams: 10/27/24 14:51 10/27/24 14:51 <Archana Espinoza PA-C - Last Filed: 10/29/24 18:10> Labs: Lab Results 10/27/24 10/27/24 Range/Units 14:51 16:43 WBC 6.5 (4.5-10.0) K/mm3 RBC 5.21 (4.2-5.4) M/mm3 Hgb 14.7 (12.0-15.0) g/dL Hct 45.3 (37.0-47.0) % MCV 86.9 (80-100) fl MCH 28.2 (26-34) pg MCHC 32.5 (32-36) g/dl RDW 17.4 H (11.5-14.5) % Plt Count 179 (150-375) k/mm3 MPV 11.4 H (7.4-10.4) fl Immature Gran % (Auto) 0.3 (0-0.5) % Neut % (Auto) 47.8 (45.5-73.1) % Lymph % (Auto) 34.6 (18.3-44.2) % Eddy % (Auto) 13.3 H (2.6-8.5) % Eos % (Auto) 3.4 (0-4.4) % Baso % (Auto) 0.6 (0.2-1.2) % Lymph # (Auto) 2.24 (0.9-3.2) K/mm3 Eddy # (Auto) 0.9 H (0.1-0.6) K/mm3 Eos # (Auto) 0.2 (0-0.3) K/mm3 Baso # (Auto) 0.0 (0.0-0.1) K/mm3 Abs Immat Gran (auto) 0.02 (0.00-0.031) K/mm3 Absolute Neuts (auto) 3.1 (1.3-6.7) K/mm3 Absolute Nucleated RBC 0.000 (0.0-0.012) K/mm3 Nucleated RBC % 0.0 (0.0-0.2) % Sodium 141 (137-145) mmol/L Potassium 4.2 (3.4-5.0) mmol/L Chloride 111 H (98-107) mmol/L Carbon Dioxide 23 (22-30) mmol/L Anion Gap 7 (4-12) mmol/L BUN 12 (7-17) mg/dL Creatinine 1.16 H (0.7-1.0) mg/dL Estim Creat Clear Calc 50 ml/min Estimated GFR 55 L (59 - ) Glucose 108 (65-110) mg/dL Calcium 10.5 H (8.4-10.2) mg/dL Total Bilirubin 0.7 (0.2-1.3) mg/dL AST 26 (14-36) U/L ALT 25 (6-35) U/L Alkaline Phosphatase 83 (38-126) U/L Total Protein 7.0 (6.3-8.2) g/dL Albumin 3.8 (3.5-5.1) g/dL Urine Color Yellow (Yellow) Urine Appearance Cloudy H (Clear) Urine pH 5.5 (5.0-9.0) Ur Specific [place] 1.015 (1.001-1.035) Urine Protein Negative (Negative) mg/dL Urine Glucose (UA) Negative (Negative) mg/dL Urine Ketones Negative (Negative) mg/dL Ur Blood (Man) Negative (Negative) Urine Nitrate Negative (Negative) Urine Bilirubin Negative (Negative) Urine Urobilinogen 0.2 (<2.0) mg/dL Leukocyte Esterase Rfl Negative (Negative) ARIANA/UL Urine RBC 0-2 (0-2) /hpf Urine WBC 0-5 (0-3) /hpf Ur Squamous Epith Cells Moderate (Few) /hpf Urine Bacteria Rare /hpf Urine Casts 0-2 <Archana Espinoza PA-C - Last Filed: 10/29/24 18:10> Lab Results 10/27/24 10/27/24 Range/Units 14:51 16:43 WBC 6.5 (4.5-10.0) K/mm3 RBC 5.21 (4.2-5.4) M/mm3 Hgb 14.7 (12.0-15.0) g/dL Hct 45.3 (37.0-47.0) % MCV 86.9 (80-100) fl MCH 28.2 (26-34) pg MCHC 32.5 (32-36) g/dl RDW 17.4 H (11.5-14.5) % Plt Count 179 (150-375) k/mm3 MPV 11.4 H (7.4-10.4) fl Immature Gran % (Auto) 0.3 (0-0.5) % Neut % (Auto) 47.8 (45.5-73.1) % Lymph % (Auto) 34.6 (18.3-44.2) % Eddy % (Auto) 13.3 H (2.6-8.5) % Eos % (Auto) 3.4 (0-4.4) % Baso % (Auto) 0.6 (0.2-1.2) % Lymph # (Auto) 2.24 (0.9-3.2) K/mm3 Eddy # (Auto) 0.9 H (0.1-0.6) K/mm3 Eos # (Auto) 0.2 (0-0.3) K/mm3 Baso # (Auto) 0.0 (0.0-0.1) K/mm3 Abs Immat Gran (auto) 0.02 (0.00-0.031) K/mm3 Absolute Neuts (auto) 3.1 (1.3-6.7) K/mm3 Absolute Nucleated RBC 0.000 (0.0-0.012) K/mm3 Nucleated RBC % 0.0 (0.0-0.2) % Sodium 141 (137-145) mmol/L Potassium 4.2 (3.4-5.0) mmol/L Chloride 111 H (98-107) mmol/L Carbon Dioxide 23 (22-30) mmol/L Anion Gap 7 (4-12) mmol/L BUN 12 (7-17) mg/dL Creatinine 1.16 H (0.7-1.0) mg/dL Estim Creat Clear Calc 50 ml/min Estimated GFR 55 L (59 - ) Glucose 108 (65-110) mg/dL Calcium 10.5 H (8.4-10.2) mg/dL Total Bilirubin 0.7 (0.2-1.3) mg/dL AST 26 (14-36) U/L ALT 25 (6-35) U/L Alkaline Phosphatase 83 (38-126) U/L Total Protein 7.0 (6.3-8.2) g/dL Albumin 3.8 (3.5-5.1) g/dL Urine Color Yellow (Yellow) Urine Appearance Cloudy H (Clear) Urine pH 5.5 (5.0-9.0) Ur Specific [place] 1.015 (1.001-1.035) Urine Protein Negative (Negative) mg/dL Urine Glucose (UA) Negative (Negative) mg/dL Urine Ketones Negative (Negative) mg/dL Ur Blood (Man) Negative (Negative) Urine Nitrate Negative (Negative) Urine Bilirubin Negative (Negative) Urine Urobilinogen 0.2 (<2.0) mg/dL Leukocyte Esterase Rfl Negative (Negative) ARIANA/UL Urine RBC 0-2 (0-2) /hpf Urine WBC 0-5 (0-3) /hpf Ur Squamous Epith Cells Moderate (Few) /hpf Urine Bacteria Rare /hpf Urine Casts 0-2 <Nino Mccann MD - Last Filed: 10/27/24 19:54> Imaging Data Radiologist's impression: Impressions Abdomen/Pelvis CT 10/27/24 13:45 IMPRESSION: 1. No urolithiasis. 2. Small sliding hiatal hernia. <Nino Mccann MD - Last Filed: 10/27/24 19:54> Critical Care Time Critical Care Time Critical Care Time: No <Archana Espinoza PA-C - Last Filed: 10/29/24 18:10> Discharge Plan Discharge Clinical Impression: Strain of lumbar region Qualifiers: Encounter type: initial encounter Qualified Code(s): S39.012A - Strain of muscle, fascia and tendon of lower back, initial encounter Sciatica Qualifiers: Laterality: left Qualified Code(s): M54.32 - Sciatica, left side <Archana Espinoza PA-C - Last Filed: 10/29/24 18:10> Patient Disposition: Home, Self-Care <Archana Espinoza PA-C - Last Filed: 10/29/24 18:10> Condition: Stable <Archana Espinoza PA-C - Last Filed: 10/29/24 18:10> Instructions: Antibiotic Form, Sciatica (ED), Back Pain (ED) <Archana Espinoza PA-C - Last Filed: 02/12/25 18:10> Additional Instructions: Medrol Dosepak as directed until completed. continue Tylenol for pain control. Tramadol for pain control as needed. Flexeril for muscle spasm. Have close follow-up with your primary care physician for additional outpatient testing and you may benefit from physical therapy. If you have any worsening symptoms then please call or return to the emergency department. <Archana Espinoza PA-C - Last Filed: 10/29/24 18:10> Patient Language: Emirati <Archana Espinoza PA-C - Last Filed: 10/29/24 18:10> Prescriptions: New cyclobenzaprine 10 mg tablet 10 mg PO BID PRN (Reason: muscle spasm) Qty: 14 0RF methylprednisolone [Medrol (Kedar)] 4 mg tablets,dose pack See Rx Instructions .ROUTE .COMPLEX Qty: 21 0RF Rx Instructions: for 6 days No Action tramadol 50 mg tablet 50 mg PO Q6H PRN meclizine 25 mg tablet 25 mg PO BID PRN furosemide 40 mg tablet 40 mg PO QAM lorazepam 1 mg tablet 1 mg PO DAILY PRN losartan 25 mg tablet 25 mg PO DAILY pantoprazole [Protonix] 40 mg tablet,delayed release (DR/EC) 40 mg PO QAM cholecalciferol (vitamin D3) 1,250 mcg (50,000 unit) capsule 1,250 mcg PO WEEKLY potassium chloride 20 mEq tablet extended release 20 meq PO DAILY chlorhexidine gluconate 0.12 % mouthwash 15 ml buccal DAILY urea 40 % lotion 1 applic topical BID betamethasone dipropionate 0.05 % cream 1 applic topical DAILY PRN clotrimazole 1 % cream 1 applic topical Q12H hydrocortisone [Anti-Itch (HC)] 1 % cream 1 applic topical BID PRN (Reason: itching) Qty: 28.35 3RF Rx Instructions: Small amount on finger or q tip, apply to ear canal, very small amount albuterol sulfate 90 mcg/actuation HFA aerosol inhaler 2 puff inhalation QID PRN (Reason: shortness of breath or wheezing) Qty: 6.7 0RF fluocinolone acetonide oil [DermOtic Oil] 0.01 % drops 5 drp EACH EAR DAILY PRN (Reason: Itching ) Qty: 20 0RF Rx Instructions: Max 5 drops daily <Archana Espinoza PA-C - Last Filed: 10/29/24 18:10> Follow-up/Referrals: Rasta,MD Franco [Primary Care Provider] - <Archana Espinoza PA-C - Last Filed: 10/29/24 18:10>
[2024-10-27] MEDS: ACETAMINOPHEN 500 MG TABLET 1000 MG PO (14:51)
[2024-10-27 15:01] LABS: Basophils Percent Auto 0.6 % (0.2-1.2); Eosinophils Absolute Auto 0.2 K/mm3 (0-0.3); Eosinophils Percent Auto 3.4 % (0-4.4); Hematocrit 45.3 % (37.0-47.0); Hemoglobin 14.7 g/dL (12.0-15.0); Immature Granulocyte Absolute 0.02 K/mm3 (0.00-0.031); Immature Granulocyte Percent A 0.3 % (0-0.5); Lymphocytes Absolute Auto 2.24 K/mm3 (0.9-3.2); Lymphocytes Percent Auto 34.6 % (18.3-44.2); Mean Corpuscular HGB Conc 32.5 g/dl (32-36); Mean Corpuscular Hemoglobin 28.2 pg (26-34); Mean Corpuscular Volume 86.9 fl (80-100); Mean Platelet Volume 11.4 fl (7.4-10.4); Monocytes Absolute Auto 0.9 K/mm3 (0.1-0.6); Monocytes Percent Auto 13.3 % (2.6-8.5); Neutrophils Absolute Auto 3.1 K/mm3 (1.3-6.7); Neutrophils Percent Auto 47.8 % (45.5-73.1); Platelet Count Result 179 k/mm3 (150-375); Red Blood Count 5.21 M/mm3 (4.2-5.4); Red Cell Distribution Width 17.4 % (11.5-14.5); White Blood Count 6.5 K/mm3 (4.5-10.0)
[2024-10-27 15:08] VITALS: BP 183/68; PULSE 68; RESP 18; O2SAT 96
[2024-10-27 15:17] LABS: Alanine Aminotransferase 25 U/L (6-35); Albumin Level 3.8 g/dL (3.5-5.1); Alkaline Phosphatase 83 U/L (38-126); Anion Gap 7 mmol/L (4-12); Aspartate Amino Transferase 26 U/L (14-36); Bilirubin,Total 0.7 mg/dL (0.2-1.3); Blood Urea Nitrogen 12 mg/dL (7-17); Calcium 10.5 mg/dL (8.4-10.2); Carbon Dioxide 23 mmol/L (22-30); Chloride 111 mmol/L (98-107); Estimated CRCL calculation 50 ml/min; Estimated Glomerular Filt Rate 55; Glucose 108 mg/dL (65-110); Potassium 4.2 mmol/L (3.4-5.0); Sodium 141 mmol/L (137-145)
--- OUTSIDE RECORDS SUMMARY | 2024-10-27 15:57 | XMS_ITS | Encounter Summary ---
Author Organization [facility] Address [address] [place] [address] Care Team Providers Care Wool Grader Name Role Phone Franco Magdaleno MD Primary Care Provider [phone] Reason for Visit * Reason Onset Date Comments Medication Issue 03/01/2022 Encounter Details Date Type Department Care Team (Late st Contact Info) Description 03/01/2022 Telephone [facility] [address] [place] [address], [place] [address] Gray Sosa MD [address] [place] [address] [address] [facility] [place], [place] [id number] Medication Issue Social History Tobacco Use Types Packs/Day Years Used Date Smoking Tobacco: Never Smokeless Tobacco: Never Sex and Gender Information Value Date Recorded Sex Assigned at Not on file Gender Identity Not on file Sexual Orientation Not on file documented as of this encounter Miscellaneous Notes * Telephone Encounter - Ajay oMrrison - 03/01/2022 11:48 AM CDT Pt called this morning requesting a refill for urea (CARMOL;VANAMIDE) 40 % cream. Pt is scheduled for 04/18/22. Please advise. documented in this encounter Plan of Treatment Not on file documented as of this encounter Visit Diagnoses Not on filedocumented in this encounter Care Teams Wool Grader Relationship Specialty Start Date End Date Franco Magdaleno MD [address] [place] [address] PCP - General 11/21/22 documented as of this encounter
--- OUTSIDE RECORDS SUMMARY | 2024-10-27 15:57 | XMS_ITS | Referral Summary ---
Author Organization [facility] Address [address] [place] [place] [address] Care Team Providers Care Surgical Scrub Technologist Name Role Phone Franco Magdaleno MD Primary Care Provider [phone] Source Comments [facility],non-owned Affiliates and Associated Physician Practices is amultiple site organization consisting of ambulatory clinics and hospital sitesin [place], [place], [place] and [place]. This disclosure is being madepursuant to the Care Everywhere program and may not contain all information available regarding this patient. Last updated 18.[facility] Plurality Allergies Active Allergy Reactions Criticality Noted Date [...] 12/21/2020 vitamin D, ergocalciferol, (DRISDOL) 1.25 MG (41727 UT) capsule Take 1 capsule by mouth [...] of Treatment Not on file Care Teams Surgical Scrub Technologist Relationship Specialty Start Date End Date Franco Magdaleno MD [address] [place] [address] PCP - General 11/21/22
--- OUTSIDE RECORDS SUMMARY | 2024-10-27 15:57 | XMS_ITS | Encounter Summary ---
Author Organization [facility] Address [address] [place] [address] Phone Care Team Providers Care Air Cargo Ground Crew Supervisor Name Role Phone Franco Magdaleno MD Primary Care Provider [phone] Genie Kimbrough MD Unavailable [phone] Encounter Details Date Type Department Care Team (Late st Contact Info) Description 03/05/2024 Telephone [facility] [address] [place] [address] Genie Kimbrough MD [address] [address] Social History Tobacco Use Types Packs/Day Years Used Date Smoking Tobacco: Never Smokeless Tobacco: Never Alcohol Use Standard Drinks/Week Comments Never 0 (1 standard drink = 0.6 oz pur e alcohol) Sexually Active Control Partners Comments Not Currently Comments No Sex and Gender Information Value Date Recorded Sex Assigned at Not on file Legal Sex 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
--- OUTSIDE RECORDS SUMMARY | 2024-10-27 15:57 | XMS_ITS | CONTINUITY OF CARE DOCUMENT ---
Author Name lia fitzgerald Address Unknown Organization [facility] Address [address] [place] [address] Phone [phone] Care Team Providers Care Nanotechnology Technician Name Role Phone Rafael NOWAK, Rosas Unavailable [phone] DALILA DUPREE MD Unavailable DALILA DUPREE MD Unavailable PROBLEMS Condition Status Date Provider Notes [facility] anticoagulant therapy active Danni Marin RN Exposure [...] Rosas Hall MD DIZZINESS completed - John Hernandes HTN essential--echo ef nl, 01/2023 active Homar Sanon Lymphedema active Damien Moody Hx of DVT active John Hernandes Shortness of breath active John Durán rg Leg pain, left active Damien Moody Lightheadedness active Damien Moody Pleural effusion, trace active Homar Beckford i ENCOUNTERS Date Type Provider Location Encounter Diag nosis - In-person encounter Office Visit Rosas Hall MD [facility] - In-person encounter Office Visit Rosas Hall MD [facility] - In-person encounter Office Visit Rosas Hall MD [facility] - In-person encounter Office Visit Rosas Hall MD [facility] - In-person encounter Office Visit Rosas Hall MD [facility] - In-person encounter Office Visit Rosas Hall MD [facility] - In-person encounter Office Visit Rosas Hall MD [facility] HTN essential--echo ef nl, 01/2023 - In-person encounter Office Visit Rosas Hall MD [facility] Pleural effusion, trace - In-person encounter Office Visit Rosas Hall MD [facility] - In-person encounter Office Visit Rosas Hall MD [facility] - In-person encounter Office Visit Rosas Hall MD [facility] - In-person encounter Office Visit Rosas Hall MD [facility] HTN essential--echo ef nl, 01/2023 - In-person encounter Office Visit Rosas Hall MD [facility] - In-person encounter Office Visit [facility] Leg pain, leftLightheadedness - In-person encounter Office Visit Rosas Hall MD [facility] HTN essential--echo ef nl, 01/2023 - In-person encounter Office Visit Rosas Hall MD [facility] PALPITATIONSDIZZINESS - In-person encounter Office Visit Rosas Hall MD [facility] Hx of DVTShortness of breath - In-person encounter Office Visit Rosas Hall MD [facility] Lymphedema - In-person encounter Office Visit Rosas Hall MD [facility] - In-person encounter Office Visit Rosas Hall MD [facility] - In-person encounter Office Visit Rosas Hall MD [facility] - In-person encounter Office Visit Rosas Hall MD [facility] - In-person encounter Office Visit Rosas Hall MD [facility] PALPITATIONS - In-person encounter Office Visit Rosas Hall MD [facility] HTN-11/24 NUC NEG 10/23 NUC 07/21 NUCPALPITATIONS-06/20 HOLTER SR 1 DEGREE AV BLOCK HR 57-136PULMONARY HTN SECONDARY-12/26 ECHO MILD PHTN EF 60PALPITATIONSCAD-02/25 CAROTID NEGHTN-02/25 ECHO BUBBLE STUDY- DIASTOLIC DYS EF 60HTN essential--echo ef nl, 01/2023 - In-person encounter Office Visit Savage Bonner MD [facility] - In-person encounter Office Visit Savage Bonner MD [facility] - In-person encounter Office Visit Savage Bonner MD [facility] - In-person encounter Office Visit Savage Bonner MD [facility] - In-person encounter Office Visit Savage Bonner MD [facility] - In-person encounter Office Visit Savage Bonner MD [facility] PALPITATIONS-11/24 HOLTER SR 42-116 - In-person encounter Office Visit Savage Bonner MD [facility] - In-person encounter Office Visit Savage Bonner MD [facility] - In-person encounter Office Visit Savage Bonner MD [facility] - In-person encounter Office Visit Leon Muñoz MD [facility] PULMONARY EMBOLISMPULMONARY HTN SECONDARY-12/26 ECHO MILD PHTN EF 60PALPITATIONS - In-person encounter Office Visit Savage Bonner MD [facility] HTN-11/24 ECHO EF 60 - In-person encounter Office Visit Savage Bonner MD [facility] - In-person encounter Office Visit Savage Bonner MD [facility] HTN-11/24 NUC NEG 10/23 NUC 07/21 NUCCHEST PAIN-09/21 CATH NL EF 60OBESITYHypercholesterolem ia, mixedADENOCARCINOMA, BREAST, RIGHT - MASTECTOMY - IN REMISSION VITAL SIGNS Date Observation Value Provider Body Mass Index (Ratio) 49.77 kg/m2 Kolby Hall MD blood pressure, diastolic 80 mm[Hg] Patsy Landon blood pressure, systolic 158 mm[Hg] Cass rich [place] oxygen saturation, oximetry 95 % Janeth [place] pulse rate 87 /[facility] E&M 12 /min Janeth [place] weight E&M 290 [lb_av] [facility] height E&M 64 [in_i] [facility] blood pressure, cuff size large Patsy simms [place] Body Mass Index (Ratio) 49.77 kg/m2 Kolby Hall MD oxygen saturation, oximetry 98 % Ruth [place] respiratory rate E&M 12 /min Ruth [place] blood pressure, cuff size large Cameron bitha [place] blood pressure, diastolic 78 mm[Hg] Ta bitha [place] blood pressure, systolic 158 mm[Hg] Tab itha [place] pulse rate 68 /min Ruth [place] weight E&M 290 [lb_av] Ruth Ford height E&M 64 [in_i] Ruth [place] Body Mass Index (Ratio) 49.94 kg/m2 Kolby Hall MD pulse rate 90 /min Ruth Ford blood pressure, cuff size large Ta bitha [place] blood pressure, diastolic 72 mm[Hg] Ta bitha [...] mm[Hg] Samanta kLogic weight E&M 291 [lb_av] [facility] pulse rate 72 /min [facility] blood pressure, cuff size regular Isamar rodriguez [place] blood pressure, diastolic 88 mm[Hg] [facility] blood pressure, systolic 142 mm[Hg] [facility], oxim[facility] 95 % [facility] respiratory rate E&M 18 /min Addis Bearden iller height E&M 64 [in_i] [facility] Body Mass Index (Ratio) 50.46 kg/m2 Kolby Hall MD pulse rate 71 /min [facility] blood pressure, diastolic 95 mm[Hg] [facility] blood pressure, systolic 145 mm[Hg] [facility] oxygen saturation, oximetry 97 % [facility] respiratory rate E&M 15 /min Addis Silva iller weight E&M 294 [lb_av] [facility] height E&M 64 [in_i] [facility] Body Mass Index (Ratio) 50.46 kg/m2 Kolby [...] diazenedaniel pulse rate 63 /min Tessa Gruenenfe [facility] weight E&M 302 [lb_av] Tessa Gruenenfe [facility] height E&M 64 [in_i] Tessa Gruenenfe [facility] Body Mass Index (Ratio) 52.18 kg/m2 Kolby Hall MD blood pressure, diastolic -1 mm[Hg] Jemma nkLog blood pressure, systolic 187 mm[Hg] Samanta kLogcandis blood pressure, diastolic 87 mm[Hg] magali Ligia blood pressure, systolic 187 mm[Hg] She burke Ligia blood pressure, cuff size large magali [place] weight E&M 304 [lb_av] Lindsey [place] height E&M 64 [in_i] Lindsey [place]ia respiratory rate E&M 20 /min Lindsey Ligia pulse rate 71 /min Lindsey Ligia oxygen saturation, oximetry 97 % Lindsey Storng respiratory rate E&M 16 /min Mary pardo Letts blood pressure, cuff size large Lali jackman [...] Amelia Dumont height E&M 64 [in_i] Amelia [place] Body Mass Index (Ratio) 50.80 kg/m2 Kolby [...] Cale Kaur respiratory rate E&M 16 /min [place] Kaur pulse rate 82 /min [place] Kaur weight E&M 301 [lb_av] [place] Kaur height E&M 64 [in_i] Cale Kaur [...] /min Rachel morales pulse rate 59 /min aRchel Beck oxygen saturation, oximetry 99 % Rachel [...] pressure, systolic, left arm 148 mm [Hg] Jsese [place] blood pressure, diastolic 76 mm[Hg] Rachel seph [place] blood pressure, systolic 148 mm[Hg] Golden eph [place] pulse rate 68 /min [facility], oximetry 100 % [facility] respiratory rate E&M 16 /min Jesse [place] weight E&M 289 [lb_av] [facility] ALLERGIES Allergy Name Onset Date Reaction Criticality [...] [place] mean corpuscular volume, RBC 82.5 fL [facility] hematocrit, blood 41.5 % [facility] hemoglobin, blood 14.1 g/dL [facility] erythrocyte (RBC) count 5.03 10*6/mm3 [facility] monocytes as percent of blood leukocytes 13.4 % [facility] lymphocytes as percent of blood leukocytes 39.0 % [facility] leukocyte count, blood 6.6 10*3/mm3 [facility] troponin I <0.04 [facility] creatine kinase, serum 601 1/L [facility] B-type natriuretic peptide <5 [facility] anion gap, serum 14.4 [facility] globulins, serum, total 3.5 g/dL [facility] estimated glomerular filtration rate 46 mL/min [facility] albumin/globulin ratio, serum 1.3 [facility] protein, total, serum 8.1 g/dL [facility] albumin, serum 4.6 g/dL [facility] bilirubin, serum, total 0.68 mg/dL [facility] alkaline phosphatase, serum 128 1/L [facility] alanine aminotransferase (SGPT), serum 57 1/L [facility] aspartate aminotransferase (SGOT), serum 40 1/L [facility] calcium, serum 9.9 mg/dL [facility] blood glucose, fasting 103 mg/dL [facility] creatinine, serum 1.48 mg/dL [facility] urea nitrogen, blood 12.8 mg/dL [facility] carbon dioxide, serum, total 27 mmol/L [facility] chloride, serum 102 mmol/L [facility] potassium, serum 4.4 mmol/L [facility] sodium, serum 139 mmol/L Marian [place] coagulation [...] 1/L [facility] [place] anion gap, serum 11.7 [facility] [place] globulins, serum, total 3.8 g/dL Marian [place] estimated glomerular filtration rate 45 mL/min [facility] [place] D-dimer quantitative mcg/mL 6.60 ug/mL [facility] [place] prothrombin time (patient) 32.7 s Marian [place] international normalized ratio (INR) 3.3 [place] platelet count 153 10*3/uL [place] red blood cell distribution width 14.7 % Marian [place] mean corpuscular hemoglobin concentration, RBC 34.7 g/dL Marian [place] mean corpuscular hemoglobin, RBC 29.7 pg [facility] [place] mean corpuscular volume, RBC 85.7 fL [place] hematocrit, blood 40.1 % [place] hemoglobin, blood 13.9 g/dL [facility] [place] erythrocyte (RBC) count 4.68 10*6/mm3 [place] monocytes as percent of blood leukocytes 12.8 % Marian Bostno lymphocytes as percent of blood leukocytes 39.3 % [place] leukocyte count, blood 8.1 10*3/mm3 [place] HISTORY OF MEDICATION USE Medication Status Instructions Dates Provider Indications Com ments Banophen 25 mg capsule active TAKE 2 CAPSULES BY MOUTH EVERY 4 HOURS Dai Ventimiglia RETURNS PROCESSOR clonidine HCl 0.1 mg tablet active TAKE 1 TABLET BY MOUTH TWICE DAILY Dai HARDYP potassium chloride 20 mEq/15 mL liquid active Filiberto Gomez atorvastatin 10 mg tablet active TAKE 1 TABLET BY MOUTH EVERY DAY Dai HARDYP clotrimazole 1% cream active Filiberto Gomez betamethasone valerate 0.1% cream active Filiberto [...] directed following package instructions - Dai Lew RETURNS PROCESSOR tramadol 50 mg tablet active as needed Amelia [facility] cholecalciferol (vitamin D3) 25 mcg (1,000 unit) [...] 1 tablet by mouth as needed - [facility] METOPROLOL TARTRATE 50 MG TABS (METOPROLOL TARTRATE) [...] history of marijuana use no Dai Ventimiglia [facility] drug use no Dai Ventimig marlena [facility] alcohol use no Dai Ventimig marlena [facility] smoking status Never smoker Dai Gonzalezm iglia [facility] drug use none Homar Sanon alcohol use [...] Veraniya Marin smoking status Never smoker Veraniya Marin social history reviewed E&M revi ewed - no changes required Rosas Hall MD social history E&M P t lives alone. E thnicity: Smoking History: Priti palumbo has never smoked. Homar barbaraari physical exercise, frequency, days per week no Vera Marin caffeine use, averag e drinks per day 0 /d Veraniya Marin smoking status Never smoker Veraniya Marin social history reviewed E&M revi ewed - no changes required [facility] social history E&M P t lives alone. [...] E&M revi ewed - no changes required aDmien Moody social history E&M P t lives [...] revi ewed - no changes required John Hernaneds physical exercise, frequency, days per week no [...] Payer name Policy type / Coverage type Drew red constitution party ID [employer] MEDICAID (2) Medicaid [id number] ADVANCE DIRECTIVES Name Date DISCUSSED - NO DECISION MADE TREATMENT PLAN Date Name Performer [id number],SHomar i [id number],S, Homar medza i [id number],S, Homar medza i [id number],S, Homar medza i [id number],S, Homar medza i [id number],S, Homar medza i [id number],S, Homar medza i [id number],S, Homar medza i [id number],S, Homar medza i [id number],B, Homar medza i [id number],S, [facility] [id number],S, Homar medza i [id number],S, Homar medza i [id number],S, [facility] [id number],S, Homar medza i [id number],S, Homar medza i [id number],S, [facility] [id number],S, Homar medza i [id number],S, Homar medza i [id number],S, Homar medza i [id number],S, Homar medza i [id number],S, Homar medza i [id number],S, Homar medza i [id number],S, Homar medza i [id number],S, Homar Ahmedza i [id number],S, Homar Ahmedza i [id number],B, Homar Ahmedza i [id number],B, Homar Ahmedza i [id number],S, Homar Ahmedza i [id number],S, Homar Ahmedza i [id number],S, Homar Ahmedza i [id number],B, Homar Ahmedza i [id number],S, Homar Ahmedza i [id number],S, Homar Ahmedza i [id number],S, Homar Ahmedza i [id number],S, Homar Ahmedza i [id number],S, Homar Ahmedza i [id number],S, Homar Ahmedza i [id number],S, Homar Ahmedza i [id number],S, Homar Ahmedza i [id number],S, Homar Ahmedza i [id number],S, Homar Ahmedza i [id number],S, Homar Ahmedza i [id number],S, Homar Ahmedza i [id number],S, Homar Ahmedza i [id number],S, Homar Ahmedza i [id number],S, Damien Moody [id number],S, Damien Moody [id number],S, Damien Moody [id number],B, Damien Moody [id number],S, Damien Moody [id number],S, Damien Moody [id number],S, Homar Beckford i [id number],S, Homar Alexanderza i [id number],S, Homar Alexanderza i [id number],S, Homar Edwardmedza i [id number],S, Homar Edwardmedza i [id number],S, Homar Alexanderza i Cardiology:BP elevat ed today [...] MD Cardiology:weight loss encourage d Dai Lew [facility] Cardiology Dai davila [facility] Cardiology: H er updated medication list for this problem includes: Atorvastatin 10 Mg Tablet (Atorvastatin) ..... Take 1 tablet by mouth every day Dai Lew [facility] Cardiology:BP elevat ed today in office but [...] tablet by mouth every day Dai Lew [facility] Cardiology: H er updated medication list for this problem includes: Warfarin 5 Mg Tablet (Warfarin) ..... 1 tablet once a day [facility] Cardiology: B P today: 158/78 P rior BP: 142/72 (02/26/2024) Labs Reviewed: C reat: 1.64 (11/03/2011) Her updated medication list for this problem includes: Losartan 100 Mg Tablet (Losartan) ..... Take 1 tablet by mouth every day Furosemide 40 Mg Tablet (Furosemide) [facility]: H er updated medication list for this problem includes: Losartan 100 Mg Tablet (Losartan) ..... Take 1 tablet by mouth every day Furosemide 40 Mg Tablet (Furosemide) [facility]: H er updated medication list for this problem includes: Atorvastatin 10 Mg Tablet (Atorvastatin) [facility] Cardiology:continues on warfarin [facility] Cardiology: H er updated medication list for this problem includes: Losartan 100 Mg Tablet (Losartan) ..... Take 1 tablet by mouth every day Furosemide 40 Mg Tablet (Furosemide) [facility] Cardiology: H er updated medication list for this problem includes: Atorvastatin 10 Mg Tablet (Atorvastatin) [facility] Cardiology:improved H er updated medication list for this problem includes: Warfarin 5 Mg Tablet (Warfarin) ..... 1 tablet once a day [facility]: H er updated medication list [...] tablet once a day Homar Ahmedzai Cardiology Hoamr Ahmedzai Cardiology Homar Ahmedzai [facility]iology Homar Ahmedzai [facility] Homar Ahmedzai [facility] Homar [facility] Homar Ahmedzai [facility] Homar Ahmedz[facility] Hom[facility] Homar Ahmedz[facility] Homar Ahmedz[facility] Homar Ahmedz[facility] Homar Ahmedz[facility] Homar Ahmedz[facility] Homar Ahmedzai [facility] Homar Ahmedz[facility] Homar Ahmedz[facility] Homar Ahmedz[facility] Homar Ahmedz[facility] Homar Ahmedz[facility] Homar Ahmedz[facility] Homar Ahmedzai [facility] Homar Ahmedzai [facility] Homar Ahmedz[facility] Homar Ahmedz[facility] Homar Ahmedzai Card[facility] Homar Ahmedzai Cardiology Ohmar Ahmedzai Cardiology Homar Ahmedzai Cardiology Homar Ahmedzai [...] MD Cardiology Rosas Hall MD Cardiology Rosas Hlal MD Cardiology Rosas Hall MD Cardiology Rosas [...] Hall MD completed FVC / MVV - 27571 Rosas Hall MD co mpleted BLOOD COUNT HEMOGLOBIN Rosas Hall MD completed FRC - 58319 Rosas Hall MD complete d SpO2 w/o 6min walk/titration Rosas Hall MD completed DLCO - 31350 Rosas Hall MD complet ed EKG Rosas Hall MD completed SNOMED-CT: [id number] Current Medications Documented Rosas Hall MD completed SNOMED-CT: 47684353 Physical Exam, Performed: Pulse Exam of Foot Rosas Hall MD completed SNOMED-CT: 053949786773302 Current Medications Documented Rosas Hall MD completed Event Monitor Rosas Hall MD comple lina SNOMED-CT: 54408698 Physical Exam, Performed: Pulse Exam of Foot Rosas Hall MD completed EKG Rosas Hall MD completed SNOMED-CT: [id number] Current Medications Documented Rosas Hall MD completed EKG Savage Bonner MD complet ed EKG Leon thrasher MD completed
--- OUTSIDE RECORDS SUMMARY | 2024-10-27 15:57 | XMS_ITS | Encounter Summary ---
Author Organization [facility] Address [address] [place] [address] Phone Care Team Providers Care Traffic Signal Technician Name Role Phone Franco Magdaleno MD Primary Care Provider [phone] Genie Kimbrough MD Unavailable [phone] Encounter Details Date Type Department Care Team (Late st Contact Info) Description 02/25/2024 Telephone [facility] [address] [place] [address] Genie Kimbrough MD [address] [address] Social History Tobacco Use Types Packs/Day Years Used Date Smoking Tobacco: Never Smokeless Tobacco: Never Alcohol Use Standard Drinks/Week Comments Never 0 (1 standard drink = 0.6 oz pur e alcohol) Sexually Active Control Partners Comments Not Currently Comments No Sex and Gender Information Value Date Recorded Sex Assigned at Not on file 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 Lisa Ruano [facility] - Referrals opt 7 documented in this encounter Plan of Treatment Not on file documented as of this encounter Visit Diagnoses Not on filedocumented in this encounter Care Teams Traffic Signal Technician Relationship Specialty Start Date End Date Franco Magdaleno MD PCP - General Internal Medicine 05/17/23 Genie Kimbrough MD [address] [place] [address] Consulting Physician Urology 05/25/23 documented as of this encounter
--- OUTSIDE RECORDS SUMMARY | 2024-10-27 15:57 | XMS_ITS | Clinical Summary ---
Author Organization [facility] Address [address] [place] [address] Care Team Providers Care Surveillance Observer Name Role Phone Franco Magdaleno MD Primary Care Provider [phone] Source Comments [facility],non-owned Affiliates and Associated Physician Practices is amultiple site organization consisting of ambulatory clinics and hospital sitesin [place], [place], [place] and [place]. This disclosure is being madepursuant to the Care Everywhere program and may not contain all information available regarding this patient. Last updated 18.[facility] [employer] Allergies Active Allergy Reactions Criticality Noted Date [...] 12/21/2020 vitamin D, ergocalciferol, (DRISDOL) 1.25 MG (18734 UT) capsule Take 1 capsule by mouth [...] age to complete this topic Care Teams Surveillance Observer Relationship Specialty Start Date End Date Franco Magdaleno MD [address] [place], [place] [address] PCP - General 11/21/22
--- OUTSIDE RECORDS SUMMARY | 2024-10-27 15:57 | XMS_ITS | Clinical Summary ---
Author Organization [facility] Address [address] [place] [address] Phone Care Team Providers Care Data Governance Consultant Name Role Phone Franco Magdaleno MD Primary Care Provider [phone] Genie Kimbrough MD Unavailable [phone] Allergies Active Allergy Reactions Criticality Noted [...] 22 Active triamcinolone (KENALOG) 0.1 % Ointment BINH TO AFFECTED AREAS ON BOTH LEGS BID [...] DAILY NEEDED FOR NAUSEA Active nystatin (MYCOSTATIN) 031328 UNIT/GM Ointment APPLY TO THE AFFECTED AREA(S) [...] by oral route. 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
--- OUTSIDE RECORDS SUMMARY | 2024-10-27 15:57 | XMS_ITS | Encounter Summary ---
Author Organization [facility] Address [address] [place] [address] Phone Care Team Providers Care Back Facer Name Role Phone Franco Magdaleno MD Primary Care Provider Genie Kimbrough MD Unavailable [phone] Encounter Details Date Type Department Care Team (Late st Contact Info) Description 01/12/2024 Telephone [facility], [facility] [address] [place] [address] Genie Kimbrough MD [address] [address] Social History Tobacco Use Types Packs/Day Years Used Date Smoking Tobacco: Never Smokeless Tobacco: Never Alcohol Use Standard Drinks/Week Comments Never 0 (1 standard drink = 0.6 oz pur e alcohol) Sexually Active Control Partners Comments Not Currently Comments No Sex and Gender Information Value Date Recorded Sex Assigned at Not on file Legal Sex Female 2:39 PM [employer] Gender Identity Not on file Sexual Orientation [...] on filedocumented in this encounter Care Teams Back Facer Relationship Specialty Start Date End Date Franco Magdaleno MD PCP - General Internal Medicine 05/17/23 Genie Kimbrough MD [address] [address] Consulting Physician Urology 05/25/23 documented as of this encounter
--- OUTSIDE RECORDS SUMMARY | 2024-10-27 15:57 | XMS_ITS | Patient Health Summary ---
Author Organization [facility] Address [address] [place] [address] Care Team Providers Care Spinner Concrete Pipe Name Role Phone Franco Magdaleno MD Primary Care Provider [phone] Note from [facility],non-owned Affiliates and Associated Physician Practices is amultiple site organization consisting of ambulatory clinics and hospital sitesin [place], [place], [place] and [place]. This disclosure is being madepursuant to the Care Everywhere program and may not contain all information available regarding this patient. Last updated 18.[facility] Allergies * Augmentin(Diarrhea) * Beta Adrenergic Blockers(Palpitations) [...] * vitamin D, ergocalciferol, (DRISDOL) 1.25 MG (58089 UT) capsule(Started 07/05/2020) Take 1 capsule by [...] Sexual Orientation Not on file Care Teams Spinner Concrete Pipe Relationship Specialty Start Date End Date Franco Magdaleno MD [address] [place] [address] PCP - General 11/21/22
[2024-10-27] MEDS: KETOROLAC 15 MG/ML VIAL (*BKC) IV PUSH (16:40)
[2024-10-27 16:54] LABS: Add Urine Microscopic? YES; Appearance Urine Cloudy (Clear); Bacteria Urine Rare /hpf; Bilirubin Urine Negative (Negative); Blood Urine Negative (Negative); Color Urine Yellow (Yellow); Glucose Urine UA Negative (Negative); Ketones Urine Negative (Negative); Leukocyte Esterase Ur Negative LEU/UL (Negative); Nitrate Urine Negative (Negative); Non Pathogenic Casts 0-2; Protein Urine Negative (Negative); RBC Urine 0-2 /hpf (0-2); Specific Grav Ur 1.015 (1.001-1.035); Squamous Epithelial Cell Urine Moderate /hpf (Few); Urobilinogen Urine 0.2 mg/dL (<2.0); WBC Urine 0-5 /hpf (0-3); pH Urine 5.5 (5.0-9.0)
[2024-10-27] MEDS: CYCLOBENZAPRINE HCL 10 MG TABLET PO (17:25)
== END 2024-10-27 17:46 | disposition home or self-care (01) ==
PROVIDERS: Physician Assistant; Emergency Provider Emergency Medicine; PCP Internal Medicine
DX: S39.012A Strain of muscle, fascia and tendon of lower back, initial encounter (principal); M54.32 Sciatica, left side; I10 Essential (primary) hypertension; X58.XXXA Exposure to other specified factors, initial encounter
CPT/HCPCS: 36415; 74176; 80053; 81001; 85025; 96374; 99284; A9270; J1885